=== PATIENT | male | born 1955 | race Caucasian/White ===

== ENCOUNTER 2017-02-19 18:04 | Emergency (ER) | payer OTHER ==
--- NOTE | 2017-02-19 20:23 | DIAGNOSTIC IMAGING REPORT ---
PROCEDURE: XR CHEST 2 VIEW INDICATION: SHORTNESS OF BREATH TECHNIQUE: PA and lateral view. COMPARISON: None. FINDINGS: Mild cardiomegaly with increased interstitial markings and small bilateral pleural effusions. No infiltrates. Mild degenerative changes of the spine. IMPRESSION: 1. Mild cardiomegaly and CHF.
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
--- NOTE | 2017-02-19 20:40 | ED CLINICAL REPORT ---
Clinical Report - Physicians/Mid Levels [facility] [address] [place] [address] 02/19/2017 18:04 Patient: ARLINE RASHEED Time Seen: 18:09. Arrived- By private vehicle. Historian- patient. HISTORY OF PRESENT ILLNESS Chief Complaint: PALPITATIONS. Modifying factors- (has orthopnea). This started today about 8 hours ago and is still present. Onset during exertion. No history of cocaine use prior to onset. It was gradual in onset and has been waxing/waning. It is described as a fast heart beat. No chest discomfort or sweating episodes. He has had difficulty breathing and dizziness. Similar symptoms previously: Recent medical care: The patient was seen recently in a clinic. ( Saw Dr Ng 4 days ago and began prednisone and oxycontin (#60) and oxycodone/ apap 7.5/325mg (#120) given). Seen for similar symptoms. Diagnosis: (bronchitis per patient). REVIEW OF SYSTEMS No fever, chills, headache, sore throat or nausea. No abdominal pain, black stools, difficulty with urination, skin rash or vomiting. No diarrhea or bloody stools. He has had insomnia (states hard to lay flat). All systems otherwise negative, except as recorded above. PAST HISTORY See nurses notes. PROBLEMS: Atrial Fibrillation. Diverticulitis. Hypertension. Dehydration. Coronary Artery Disease. Cardiovascular disease. Possible MA. UTI Surgeries: Carpal Tunnel Surgery. Hemorrhoidectomy. Hernia Repair. Wrist surgery. Medications: Aspirin Oral (Tablet 81 mg) 1 tablet, daily. Metoprolol Tartrate Oral (Tablet 50 mg) 1 tablet, two times daily. Nitroglycerin SL. OxyCODONE HCl Oral 10 mg. Percocet Oral (Tablet 7.5-325 mg) 1 tablet, 4x a day. Allergies: Latex. LIsinopril. Definite Moderate (cough). SOCIAL HISTORY Smoker- current status unknown. Occasional alcohol use. No drug use. ADDITIONAL NOTES The nursing notes have been reviewed. PHYSICAL EXAM Vital Signs: 02/19/2017 18:11 BP: 147/79. HR: 148. RR: 22. O2 saturation: 95%. Temp: 99.5 F. Pain level now: 5/10. Appearance: Alert. Oriented X3. Patient in mild distress. Eyes: Eyes normal inspection. No scleral icterus or pale conjunctivae. ENT: Pharynx normal. No pharyngeal erythema or tonsillar exudate. The mucous membranes are not dry. Neck: Normal inspection. Neck supple. CVS: Abnormal rhythm, which is irregularly irregular. No cardiac murmur. Respiratory: No respiratory distress. Chest nontender. Abdomen: Soft and nontender. Back: Normal external inspection. No CVA tenderness. Skin: Skin warm and dry. Normal skin color. Normal skin turgor. Extremities: Bilateral mild edema of the lower extremities. Extremities exhibit normal ROM. No calf tenderness. Neuro: Oriented X 3. No motor deficit. LABS, X-RAYS, AND EKG EKG: EKG time: (18:26). Atrial fibrillation (ventricular rate 140). Non-specific ST segment / T wave abnormalities. The study has been interpreted contemporaneously by me. The EKG appears to be a good tracing. Rhythm Strip #1: Atrial fibrillation (ventricular rate 140). No ectopy. Non-specific ST segment / T-wave abnormalities. Chest X-ray: Mild congestive heart failure present. (increased interstitial markings). Views: PA and lateral. Technique: good. The X-rays were interpreted contemporaneously by me. Laboratory Tests: UA-Culture if indicated: (CÉSAR: 02/19/2017 18:55) ( MsgRcvd 02/19/2017 19:12) Final results Test Result Flag Units (Reference) URINE COLOR YELLOW URINE APPEARANCE CLEAR URINE GLUCOSE NEGATIVE (NEGATIVE) URINE BILIRUBIN NEGATIVE (NEGATIVE) URINE KETONE NEGATIVE (NEGATIVE) URINE SPECIFIC GRAVITY 1.010 (1.010-1.030) URINE PH 6.0 (5.0-8.0) URINE PROTEIN NEGATIVE (NEGATIVE) URINE UROBILINOGEN 0.2 EU/dL (0.2-1.0) URINE NITRITE NEGATIVE (NEGATIVE) URINE BLOOD 2+ (NEGATIVE) URINE LEUK ESTERASE NEGATIVE (NEGATIVE) URINE RBC 0-1 rbc/hpf (0-1) URINE WBC RARE wbc/hpf (0-1) URINE EPITHELIAL CELLS RARE EPI/hpf (0-5) URINE BACTERIA NONE SEEN (NONE SEEN) URINE COMMENT CULT NOT INDICATED URINE CULTURES ARE SET-UP BASED ON THE FOLLOWING CRITERIA:POSITIVE NITRITEPOSITIVE LEUKOCYTE ESTERASEGREATER THAN 10 WHITE BLOOD CELLSMODERATE (2+) OR GREATER BACTERIA CBC w Diff: (CÉSAR: 02/19/2017 18:14) ( MsgRcvd 02/19/2017 18:48) Final results Test Result Flag Units (Reference) WHITE BLOOD COUNT 7.7 K/uL (4.5-11.5) RED BLOOD COUNT 4.66 M/uL (4.50-5.90) HEMOGLOBIN 13.6 gm/dL (13.5-17.5) HEMATOCRIT 40.6 L % (41.0-53.0) MEAN CELL VOLUME 87 fL (80-100) MEAN CORPUSCULAR HGB 29 pg (26-34) MEAN CORPUSCULAR HGB CONC 33 g/dL (31-37) RED CELL DISTRIBUTION WIDTH 18.5 H % (11.6-14.8) PLATELET COUNT 264 K/uL (150-400) NEUTROPHIL % 86.9 H % (50-75) LYMPH % 9.5 L % (25-40) MONO % 3.6 % (3-14) EOSINOPHIL % 0 % (0-4) BASOPHIL % 0 % (0-2) PT with INR: (CÉSAR: 02/19/2017 18:14) ( MsgRcvd 02/19/2017 18:59) Final results Test Result Flag Units (Reference) INR 0.9 (0.8-1.2) Low Intensity Therapy: INR 1.5-2.0 PT range 18.5-23.1Mod.Intensity Therapy: INR 2.0-3.0 PT range 23.1-31.5High Intensity Therapy: INR 2.5-3.5 PT range 27.4-35.5High Intensity Therapy 2: INR 3.0-4.0 PT range 31.5-39.3 D-DIMER QUANTITATIVE 0.55 H ug/mLFEU (0.27-0.52) The primary value of this quantitative assay relates toits negative predictive value (i.e. exclusion) of pulmonaryembolism/deep vein thrombosis/DIC.Elevated levels of d-dimer may also occur with:, age, cancer, inflammation, liver disease,post-op, infection, hematoma, coronary disease, peripheralarteriopathy, bleeding disorders and thrombolytic treatment.Results should be correlated with other clinical andradiological data.Testing Methodology: Latex Immunoassay Urine Drug Screen: (CÉSAR: 02/19/2017 18:55) ( [facility] 02/19/2017 19:26) Final results Test Result Flag Units (Reference) AMPHETAMINE/METHAMPHETAMINE NEGATIVE (NEGATIVE) BARBITURATE NEGATIVE (NEGATIVE) BENZODIAZEPINE NEGATIVE (NEGATIVE) CANNABINOID NEGATIVE (NEGATIVE) COCAINE NEGATIVE (NEGATIVE) ECSTASY NEGATIVE (NEGATIVE) METHADONE NEGATIVE (NEGATIVE) OPIATE NEGATIVE (NEGATIVE) The urine drug screen is a qualitative screening test fordrug overdose and abuse. All screen results should beconsidered as presumptive.Drugs screened for are as follows:BenzodiazepinesCocaineAmphetamines/MetamphetaminesTHC (Tetrahydrocannabinol)OpiatesBarbituratesEcstasyMethadonePositive results are unconfirmed. For confirmation, notifythe lab for the specimen to be sent to the reference lab.All confirmations must be performed by a differentmethodology.The ingestion of natural herbal and plant productscontaining Ephedra/Ephedra metabolites can produce in urineone or more substances capable of cross reacting withamphetamine/methamphetamine immunoassays. These testsprovide a preliminary result only. A more specificalternative chemical method must be used to obtain aconfirmed analytical result. BNP: (CÉSAR: 02/19/2017 18:14) ( [facility] 02/19/2017 19:09) Final results Test Result Flag Units (Reference) B-TYPE NATRIURETIC PEPTIDE 205 H pg/ml (5-100) CHEM 13 PANEL: (CÉSAR: 02/19/2017 18:14) ( [facility] 02/19/2017 19:08) Final results Test Result Flag Units (Reference) GLUCOSE 189 H mg/dL (70-110) BUN 17 mg/dL (7-18) CREATININE 1.4 H mg/dL (0.6-1.3) Estimated GFR 54.58 mL/min Estimated GFR- >60 mL/min Note: Persistent reduction over 3 months in eGFR<60 mL/min/1.73 m2 defines CKD. Patients with eGFR values>=60 mL/min/1.73 m2 may also have CKD if evidence ofpersistent proteinuria. Additional information may be foundat www.kidney.org. SODIUM 137 mmol/L (136-145) POTASSIUM 4.7 mmol/L (3.5-5.1) CHLORIDE 102 mmol/L (98-107) CARBON DIOXIDE 26 mmol/L (21-32) CALCIUM 9.1 mg/dL (8.5-10.1) TOTAL PROTEIN 7.3 g/dL (6.4-8.2) ALBUMIN 3.8 g/dL (3.3-5.0) BILIRUBIN, TOTAL 0.7 mg/dL (0.0-1.0) ALKALINE PHOSPHATASE 90 U/L (46-116) AST (SGOT) 33 U/L (15-37) ALT (SGPT) 58 U/L (12-78) CPK 143 U/L (24-260) MAGNESIUM 2.0 mg/dL (1.8-2.4) AMYLASE 40 U/L (25-115) TROPONIN I <0.05 ng/mL (0.00-1.5) TROPONIN REFERENCE RANGE:<0.1 NEGATIVE0.1-1.5 INDETERMINANT>1.5 POSITIVE ETHYL ALCOHOL < 3.0 L mg/dL (3-10) THYROID STIMULATING HORMONE 1.927 uIU/mL (0.30-3.74) . Pulse Oximetry: 02/19/2017 18:11 O2 saturation: 95%. (FIO2 - room air). Interpretation: normal. Note - Tests: (EXAM(S): NM CARDIAC STRESS TEST DATE OF EXAM(S): 09/23/2015 REFERRING PHYSICIAN/PROVIDER: Mohinder Ng MD ATTENDING PHYSICIAN/PROVIDER: Rafi Barclay MD CONSULTING YARD SWITCH OPERATOR: Sariah Crabtree MD PROCEDURE PERFORMED: Nuclear stress test INDICATIONS: Chest discomfort. RADIOPHARMACEUTICAL: The patient received 32.1 mCi of technetium-99m labeled sestamibi during rest and 30.0 mCi of technetium-99m labeled sestamibi during pharmacological stress. This is a two-day stress protocol. CARDIAC STRESS: The patient is stressed according to Lexiscan-Cardiolite protocol. Resting heart rate is 122 bpm and heart rate at test end is 118 bpm. The patients baseline blood pressure is 159/111 mmHg. At test end the blood pressure is 155/115 mmHg. The patient developed rare isolated PVCs and baseline EKG showed atrial fibrillation with a heart rate of 110-130 bpm. The patient did develop some mild chest discomfort which is relieved spontaneously after a few minutes. Findings of new onset atrial fibrillation were discussed with Dr. Mohinder Ng, although there is no evidence of significant ST-T changes consistent with ischemia. RAW DATA: There is appropriate radiotracer uptake at the LV myocardium. Motion correction software is applied. QUANTITATIVE GATED SPECT: I am not able to appreciate any overt findings for LV wall-motion abnormalities, although image quality is somewhat suboptimal which decreases the sensitivity for such. The ejection fraction during stress is 41% and during rest is 53%. The left ventricular end-diastolic volume during rest is 62 mL. The calculated TID is 0.89 which is within normal limits. MYOCARDIAL PERFUSION STUDY: There is no evidence of significant perfusion defects noted on the supine stress images, although there might be some diaphragmatic attenuation artifact which resolves with prone imaging. The rest supine images actually show slight worsening inferior perfusion defect; otherwise, the rest of the LV myocardium is within normal limits. IMPRESSION: 1. Most likely normal myocardium perfusion study. 2. 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 Ejection fraction is reduced with resting ejection fraction of 53% and stress ejection fraction of 41%. 3. Inferior perfusion defect is most likely an attenuation artifact secondary to diaphragmatic attenuation since it improves with prone imaging. 4. Clinical correlation is recommended. Electronically signed by: SARIAH CRABTREE MD 10/06/2015 17:01). PROGRESS AND PROCEDURES Course of Care: Diltiazem 15 mg + 10 mg IVP given. 20:39 02/19/17. Symptoms better. 20:39 02/19/17. HR 100 - 110. Pt is refusing admission despite my strong recommendation. He signs AMA. He is encouraged to return for new / worsening symptoms or any concerns 20:50 02/19/17. After full discussion of risks of stroke and benefits of anticoagulation, pt is refusing coumadin or other anticoagulant. Patient/family counseled. Old ED records reviewed. (PDMP: oxycontin (#60) and oxycodone/ apap 7.5/325mg (#120) given on 02/15/2017 - Dr Ng; JUAN with 3 visits to area ED's ([facility] x 2, [facility] x 1) in past 12 months). Disposition: Discharged. Condition: stable and improved. CLINICAL IMPRESSION Microscopic hematuria , paroxysmal atrial fibrillation with uncontrolled rate. Acute mild systolic, left ventricular congestive heart failure Mild hyperglycemia. INSTRUCTIONS No strenuous activity. Rest. Drink plenty of fluids. No alcohol until released. Warnings: Further evaluation is necessary. It is very important to follow up with a physician. GENERAL WARNINGS: Return or contact your physician immediately if your condition worsens or changes unexpectedly, if not improving as expected, or if other problems arise. Your Current Medications: CONTINUE TAKING THE FOLLOWING MEDICATIONS: Aspirin Oral : Tablet 81 mg, 1 tablet daily. Metoprolol Tartrate Oral : Tablet 50 mg, 1 tablet two times daily. Nitroglycerin SL*. OxyCODONE HCl Oral : 10 mg. Percocet Oral : Tablet 7.5-325 mg, 1 tablet 4x a day. Follow-up: Follow up with your doctor tomorrow. Understanding of the discharge instructions verbalized by family. AMA warnings: Oriented to person, place, and time. Gives appropriate answers and rational explanation of refusal of care. Speaks coherently. No signs of psychosis, auditory hallucinations, delusional thinking, suicidal ideations or slurred speech. No tangential thinking, visual hallucinations or homicidal ideations. Abstract thinking intact. Clinical Impression: the patient has the capacity to make decisions regarding the medical care offered. Relevant issues reviewed and discussed with the patient. Aware of suspected diagnosis suggested by screening exam. The recommended medical care being refused is hospital admission. The risks of refusing recommended care that were disclosed are and permanent mental impairment. Discharge instructions were provided. REFUSAL OF CARE STATEMENT (patient to review and sign in discharge instructions): I have read this paragraph. I understand that a doctor at this hospital wants to give me certain medical care. The doctor explained that care to me, and I understand what that care is. The doctor also explained to me what could happen to me if I leave here without having that care, and I understand what he said. I know that I am welcome to return to this hospital at any time to receive the recommended care or any other care that I may need at any time, regardless of my ability to pay for such care. Follow-up with: Mohinder Ng MD, Family Practice, , [facility], [address] [facility], [place], [address] Follow up tomorrow. Reason for referral: Dr. Ng has a walk-in clinic at his office which is open 7 days per week for your convenience (Electronically signed by Ham Riggins DO 02/19/2017 23:06)
--- NOTE | 2017-02-19 20:40 | ED ORDER SUMMARY ---
..... Patient: ARLINE RASHEED OrderSheet [facility] VisitID: [id number] [place] [address] 61y, M Registration Date/Time: 02/19/2017 ORDER SHEET Weight: 148.3 kg (stated) Allergies: Latex, LIsinopril GENERAL ORDERS: Armoured Car Escort (Continuous) (18:02/19/2017 [facility]) (Ack 18:12 TBergley) (18:34 JRomanelli R.N.) UA-Culture if indicated Urgent (18:02/19/2017 [facility] DO) (Ack 18:12 TBergley) (19:42 JRomanelli R.N.) Cardiac Panel Stat (:02/19/2017 [facility]) (Ack 18:12 TBergley) (18:34 JRomanelli R.N.) BNP Urgent ([facility] ) (Ack 18:12 TBergley) (18:34 JRomanelli R.N.) D-Dimer Urgent (18:02/19/2017 [facility] DO) (Ack 18:12 TBergley) (18:34 JRomanelli R.N.) Amylase Urgent (18:02/19/2017 [facility] DO) (Ack 18:12 TBergley) (18:34 JRomanelli R.N.) PT with INR Urgent (18:02/19/2017 [facility] DO) (Ack 18:12 TBergley) (18:34 JRomanelli R.N.) TSH Urgent (18:02/19/2017 [facility] DO) (Ack 18:12 TBergley) (18:34 JRomanelli R.N.) Ethyl Alcohol Urgent (18:02/19/2017 [facility] DO) (Ack 18:12 TBergley) (18:34 JRomanelli R.N.) Pulse oximeter (18:02/19/2017 [facility]) (Ack 18:12 TBergley) (18:34 JRomanelli R.N.) EKG - ER Stat (18:09 02/19/2017 [facility]) (Ack 18:12 TBergley) (18:34 Beatriceelli R.N.) Vitals (18:09 02/19/2017 [facility]) (Ack 18:12 TBergley) (18:34 Beatriceelli R.N.) Chest 2V Urgent (18:19 02/19/2017 [facility]) (Ack 18:27 TBergley) (18:45 TBergley) Urine Drug Screen Urgent (18:56 02/19/2017 [facility]) (Ack 18:57 TBergley) MEDICATION ORDERS: IV FLUIDS: IV NS : initial bolus 500 mL (1000 mL/hr), then 250 mL/hr for X2 (NOW) (18:09 02/19/2017 [facility]) (18:36 Beatriceelli R.N.) Diltiazem IV 15 mg (HIGH ALERT MEDICATION, NOW) (18:31 02/19/2017 [facility]) (18:50 Gagandeep R.N.) Diltiazem IV 10 mg (NOW) (19:25 02/19/2017 [facility]) (19:39 Gagandeep R.N.) ORDER SHEET NOTES: [Electronically signed by Ham Riggins DO (23:06 02/19/2017)] [Electronically signed by Jaison Chavira R.N. (:02/20/2017)] [Electronically locked/signed by Jaison Chavira R.N. (:02/20/2017)]
--- NOTE | 2017-02-19 20:40 | ED ORDER SUMMARY ---
..... Patient: ARLINE RASHEED OrderSheet [facility] VisitID: [id number] [place] [address] 61y, M Registration Date/Time: 02/19/2017 ORDER SHEET Weight: 148.3 kg (stated) Allergies: Latex, LIsinopril GENERAL ORDERS: Injection Molding Supervisor (Continuous) (18:02/19/2017 [facility]) (Ack 18:12 TBergley) (18:34 JRomanelli R.N.) UA-Culture if indicated Urgent (18:02/19/2017 [facility] DO) (Ack 18:12 TBergley) (19:42 JRomanelli R.N.) Cardiac Panel Stat (:02/19/2017 [facility]) (Ack 18:12 TBergley) (18:34 JRomanelli R.N.) BNP Urgent (18:02/19/2017 [facility] ) (Ack 18:12 TBergley) (18:34 JRomanelli R.N.) D-Dimer Urgent (18:02/19/2017 [facility] DO) (Ack 18:12 TBergley) (18:34 JRomanelli R.N.) Amylase Urgent (18:02/19/2017 [facility] DO) (Ack 18:12 TBergley) (18:34 JRomanelli R.N.) PT with INR Urgent (18:02/19/2017 [facility] DO) (Ack 18:12 TBergley) (18:34 JRomanelli R.N.) TSH Urgent (18:02/19/2017 [facility] DO) (Ack 18:12 TBergley) (18:34 JRomanelli R.N.) Ethyl Alcohol Urgent (18:02/19/2017 [facility] DO) (Ack 18:12 TBergley) (18:34 JRomanelli R.N.) Pulse oximeter (18:02/19/2017 [facility]) (Ack 18:12 TBergley) (18:34 JRomanelli R.N.) EKG - ER Stat (18:09 02/19/2017 [facility]) (Ack 18:12 TBergley) (18:34 Beatriceelli R.N.) Vitals (18:09 02/19/2017 [facility]) (Ack 18:12 TBergley) (18:34 Beatriceelli R.N.) Chest 2V Urgent (18:19 02/19/2017 [facility]) (Ack 18:27 TBergley) (18:45 TBergley) Urine Drug Screen Urgent (18:56 02/19/2017 [facility]) (Ack 18:57 TBergley) MEDICATION ORDERS: IV FLUIDS: IV NS : initial bolus 500 mL (1000 mL/hr), then 250 mL/hr for X2 (NOW) (18:09 02/19/2017 [facility]) (18:36 Beatriceelli R.N.) Diltiazem IV 15 mg (HIGH ALERT MEDICATION, NOW) (18:31 02/19/2017 [facility]) (18:50 Gagandeep R.N.) Diltiazem IV 10 mg (NOW) (19:25 02/19/2017 [facility]) (19:39 Gagandeep R.N.) ORDER SHEET NOTES: [Electronically signed by Ham Riggins DO (23:06 02/19/2017)] [Electronically signed by Jaison Chavira R.N. (:02/20/2017)] [Electronically locked/signed by Jaison Chavira R.N. (:02/20/2017)]
--- NOTE | 2017-02-20 01:30 | ED MAR SUMMARY ---
..... Medication Administration Record [facility] [address] [place] [address] Patient: ARLINE RASHEED Visit ID: [id number] 61y, M Weight: 148.3 kg Height/Length: 74 in BMI: 42 ALLERGIES: Latex, LIsinopril Start 18:26 02/19/2017 Jaison Chavira RAmaliaN., Stop 20:30 02/19/2017 Jaison Chavira R.N. Medication Administered: IV NS (SALINE), Dose: IV Fluids over 2 hour(s), Rate: 250 mL/hr, Bolus: 500 mL over 30 minute(s), Dispensed: 1000 mL bag, Site: #1 left wrist. Medication Ordered: IV NS : initial bolus 500 mL (1000 mL/hr), then 250 mL/hr for X2 (NOW). Given 18:45 02/19/2017 Jaison Chavira R.N. Medication Administered: DILTIAZEM [IVP], Dose: 15 mg IVP over 2 minute(s), Site: #1 left wrist. Medication Ordered: Diltiazem IV 15 mg (HIGH ALERT MEDICATION, NOW). Given 19:34 02/19/2017 Jaison Chavira RAmaliaN. Medication Administered: DILTIAZEM [IVP], Dose: 10 mg IVP over 2 minute(s), Site: #1 left wrist. Medication Ordered: Diltiazem IV 10 mg (NOW).
--- NOTE | 2017-02-20 01:30 | ED MED RECONCILIATION SUMMARY ---
Patient: ARLINE RASHEED Medication Reconciliation Report [facility] VisitID: [id number] [address] [place] [address] 61y, M Registration Date/Time: 02/19/2017 Weight: 148.3 kg Height/Length: 74 in. BMI: 42.0 ALLERGIES: Latex, LIsinopril The patient's Home Medications are listed below: CONTINUE TAKING THE FOLLOWING MEDICATIONS: Aspirin Oral (81 mg) 1 tablet, daily Metoprolol Tartrate Oral (50 mg) 1 tablet, two times daily Nitroglycerin SL OxyCODONE HCl Oral 10 mg Percocet Oral (7.5-325 mg) 1 tablet, 4x a day The source(s) of the original Home Medication information: patient The following Medications were given to the patient in the Emergency Department: IV NS IV Fluids bolus 500 mL over 30 minute(s), then 250 mL/hr, administered: 02/19/2017 6:26:00 PM Diltiazem [IVP] IVP 15 mg, administered: 02/19/2017 6:45:00 PM Diltiazem [IVP] IVP 10 mg, administered: 02/19/2017 7:34:00 PM The following Medications were prescribed to the patient: None.
--- NOTE | 2017-02-20 01:30 | ED MED RECONCILIATION SUMMARY ---
Patient: ARLINE RASHEED Medication Reconciliation Report [facility] VisitID: [id number] [address] [place] [address] 61y, M Registration Date/Time: 02/19/2017 Weight: 148.3 kg Height/Length: 74 in. BMI: 42.0 ALLERGIES: Latex, LIsinopril The patient's Home Medications are listed below: CONTINUE TAKING THE FOLLOWING MEDICATIONS: Aspirin Oral (81 mg) 1 tablet, daily Metoprolol Tartrate Oral (50 mg) 1 tablet, two times daily Nitroglycerin SL OxyCODONE HCl Oral 10 mg Percocet Oral (7.5-325 mg) 1 tablet, 4x a day The source(s) of the original Home Medication information: patient The following Medications were given to the patient in the Emergency Department: IV NS IV Fluids bolus 500 mL over 30 minute(s), then 250 mL/hr, administered: 02/19/2017 6:26:00 PM Diltiazem [IVP] IVP 15 mg, administered: 02/19/2017 6:45:00 PM Diltiazem [IVP] IVP 10 mg, administered: 02/19/2017 7:34:00 PM The following Medications were prescribed to the patient: None.
--- NOTE | 2017-02-20 01:30 | ED DISCHARGE INSTRUCTIONS ---
Patient: ARLINE RASHEED General Instructions [facility] VisitID: [id number] [place] [address] 61y, M Registration Date/Time: 02/19/2017 Microscopic hematuria , paroxysmal atrial fibrillation with uncontrolled rate. Acute mild systolic, left ventricular congestive heart failure Mild hyperglycemia. INSTRUCTIONS No strenuous activity. Rest. Drink plenty of fluids. No alcohol until released. Warnings: Further evaluation is necessary. It is very important to follow up with a physician. GENERAL WARNINGS: Return or contact your physician immediately if your condition worsens or changes unexpectedly, if not improving as expected, or if other problems arise. Your Current Medications: CONTINUE TAKING THE FOLLOWING MEDICATIONS: Aspirin Oral : Tablet 81 mg, 1 tablet daily. Metoprolol Tartrate Oral : Tablet 50 mg, 1 tablet two times daily. Nitroglycerin SL*. OxyCODONE HCl Oral : 10 mg. Percocet Oral : Tablet 7.5-325 mg, 1 tablet 4x a day. Follow-up: Follow up with your doctor tomorrow. Understanding of the discharge instructions verbalized by family. AMA warnings: Oriented to person, place, and time. Gives appropriate answers and rational explanation of refusal of care. Speaks coherently. No signs of psychosis, auditory hallucinations, delusional thinking, suicidal ideations or slurred speech. No tangential thinking, visual hallucinations or homicidal ideations. Abstract thinking intact. Clinical Impression: the patient has the capacity to make decisions regarding the medical care offered. Relevant issues reviewed and discussed with the patient. Aware of suspected diagnosis suggested by screening exam. The recommended medical care being refused is hospital admission. The risks of refusing recommended care that were disclosed are and permanent mental impairment. Discharge instructions were provided. REFUSAL OF CARE STATEMENT (patient to review and sign in discharge instructions): I have read this paragraph. I understand that a doctor at this hospital wants to give me certain medical care. The doctor explained that care to me, and I understand what that care is. The doctor also explained to me what could happen to me if I leave here without having that care, and I understand what he said. I know that I am welcome to return to this hospital at any time to receive the recommended care or any other care that I may need at any time, regardless of my ability to pay for such care. Follow-up with: Mohinder Ng MD, [facility], , [facility], [address] [facility] [id number] Follow up tomorrow. Reason for referral: Dr. Ng has a walk-in clinic at his office which is open 7 days per week for your convenience ADDITIONAL INFORMATION Heart Failure (Left Or Right Sided) The heart is a large muscle that pumps blood throughout the body. Blood carries oxygen to all the organs, muscles, and skin of your body. After the body takes the oxygen out of the blood, the blood returns to the heart. The right side of the heart collects that blood and pumps it to the lungs to receive fresh oxygen. This oxygen-rich blood from the lungs then returns to the left side of the heart where it is pumped back out to the rest of the body, starting the process all over. Heart Failure (HF) occurs when the heart muscle is weakened. This affects the pumping action of the heart. When the right side of the heart is weakened, it cant handle the blood it is receiving from the rest of the body. This blood returns to the heart through veins. When too much pressure builds up in the veins fluid leaks out into the tissues. [place] then causes that fluid to spread to those parts of the body that are the lowest. Therefore, one of the first symptoms of HF include swelling in the feet and ankles. If the condition worsens, the swelling can even go up past the knees. When the left side of the heart is weakened, it cant handle the blood it is receiving from the lungs. Pressure then builds up in the veins of the lungs, causing fluid to leakinto the lung tissues. This may be referred to as congestive heart failure.This causes you to feel short of breath, weak, or dizzy. These symptoms are often worse with exertion, such as climbing stairs or walking up hills. Lying flat is uncomfortable and can make your breathing worse. This may make sleeping difficult and force you to useextra pillows to sleep well. This condition may not only affect the right side of the heart or only the left side. While it may have started on one side, it often affects both sides. Causes of heart failure Coronary artery disease Prior heart attack (also known as acute myocardial infarction, or AMI) High blood pressure Damaged heart valve Diabetes Obesity Cigarette smoking Alcohol abuse Treatment Heart failure is a chronic condition. There is no cure. The purpose of medical treatment is to improve the pumping action of the heart, and remove excess water from the body. A number of medications can help achieve this goal,improvesymptoms and prevent the heart from becoming weaker. Another major goal is to better treat the caues of heart failure, such as diabetes, high blood pressure, and your lifestyle. Home care Check your weight every day. A sudden increase in weight gain could mean worsening heart failure. Use the same scale every day Weigh yourself at the same time every day Make sure the scale is on the floor, not on a rug Keep a record of your weight every day, so your doctor can see it. If you are not given a log sheet for this, keep a separate journal for this purpose. Reduce your salt (sodium) intake. Avoid high-salt foods (olives, pickles, smoked meats, salted potato chips, etc.). Do not add salt to your food at the table and use only small amounts of salt when cooking. Follow your doctors recommendations about how much fluid intake is safe. Stop smoking. Reduce alcohol use. Lose weight if you are overweight. The excess weight adds a lot of stress on the workload of the heart. Stay active. Talk to your doctor about an exercise program that is safe for your heart. Keep your feet elevated to reduce swelling. Ask your doctor about support hose as a preventive treatment for daytime leg swelling. Besides taking your medicine as instructed, an important part of treatment includes lifestyle changes such as diet, physical activity, stopping smoking, and weight control. Improve your diet. Often in the hospital, people are given a "heart healthy diet." This includes more fresh foods, lower fat, less processed foots, and lower salt. Follow-up care Follow up with your doctor as directed by our staff. Make sure to keep any appointments that were made for you as this can help better control heart failure. If an X-ray was done, you will be notified of any new findings that may affect your care. Call 911 Call 911 if you: Become severely short of breath Feel lightheaded, or feel like you might pass out or faint Have chest pain or discomfort that is different than usual, the medicines your doctor told you to use for this do not help, or the pain lasts longer than 10 to 15 minutes Suddendly develop a rapid heart rate When to seek medical care Get prompt medical attention if you have any of the following signs of worsening heart failure: Sudden weight gain (3or more pounds in one day or5or more pounds in one week) Trouble breathing not related to being active New or increased swelling of your legs or ankles Swelling or pain in your abdomen Breathing trouble at night (waking up short of breath, needing more pillows to breathe) Frequent coughing that doesnt go away Feeling much more tired than usual Blood In The Urine Blood in the urine ("hematuria") has many possible causes. If it occurs after an injury (such as a car accident or fall), it is most often a sign of bruising to the kidney or bladder. Common medical causes of blood in the urine include urinary tract infection, kidney stone, inflammation, tumors, or certain other diseases of the kidney or bladder. Menstruation can cause blood to appear in the urine sample, although it is not coming from the urinary tract. If only a trace amount of blood is present, it will show up on the urine test, even though the urine may be yellow and not pink or red. This may occur with any of the above conditions, as well as heavy exercise or high fever. In this case, your doctor may want to repeat the urine test on another day. This will show if the blood is still present. If so, then other tests can be done to find out the cause. Home Care: If your urine does not appear bloody (pink, brown or red) then you do not need to restrict your activity in any way. If you can see blood in your urine, rest and avoid heavy exertion until your next exam. Do not use aspirin or anti-inflammatory medicine like ibuprofen (Motrin, Advil) or naproxen (Naprosyn, Aleve). These thin the blood and may increase bleeding. Follow Up with your doctor or as advised by our staff. If you were injured and had blood in your urine, you should have a repeat urine test in 1-2 days. Contact your doctor or return to this facility for this test. [NOTE: A radiologist will review any X-rays that were taken. We will notify you of any new findings that may affect your care.] Get Prompt Medical Attention if any of the following occur: Bright red blood or blood clots in the urine (if a new symptom) Weakness, dizziness or fainting New groin, abdominal or back pain Fever of 100.4F (38C) or higher, or as directed by your healthcare provider Repeated vomiting Bleeding from nose, gums or easy bruising You have been given the following additional information: Heart Failure, General Hematuria No strenuous activity. Rest. (Electronically signed by Ham Riggins DO 02/19/2017 23:06)
--- NOTE | 2017-02-20 01:30 | ED MAR SUMMARY ---
..... Medication Administration Record [facility] [address] [place] [address] Patient: ARLINE RASHEED Visit ID: [id number] 61y, M Weight: 148.3 kg Height/Length: 74 in BMI: 42 ALLERGIES: Latex, LIsinopril Start 18:26 02/19/2017 Jaison Chavira RAmaliaN., Stop 20:30 02/19/2017 Jaison Chavira R.N. Medication Administered: IV NS (SALINE), Dose: IV Fluids over 2 hour(s), Rate: 250 mL/hr, Bolus: 500 mL over 30 minute(s), Dispensed: 1000 mL bag, Site: #1 left wrist. Medication Ordered: IV NS : initial bolus 500 mL (1000 mL/hr), then 250 mL/hr for X2 (NOW). Given 18:45 02/19/2017 Jaison Chavira R.N. Medication Administered: DILTIAZEM [IVP], Dose: 15 mg IVP over 2 minute(s), Site: #1 left wrist. Medication Ordered: Diltiazem IV 15 mg (HIGH ALERT MEDICATION, NOW). Given 19:34 02/19/2017 Jaison Chavira RAmaliaN. Medication Administered: DILTIAZEM [IVP], Dose: 10 mg IVP over 2 minute(s), Site: #1 left wrist. Medication Ordered: Diltiazem IV 10 mg (NOW).
[2017-03-04] MEDS ORDERED: IPRATROPIUM BROMIDE/ IN (13:31)
== END 2017-02-19 21:00 | disposition home or self-care (01) ==
LOC: ED SRH 18:04
DX: I50.21 Acute systolic (congestive) heart failure (principal); R31.29 Other microscopic hematuria; R73.9 Hyperglycemia, unspecified; I10 Essential (primary) hypertension; I48.91 Unspecified atrial fibrillation; Z79.82 Long term (current) use of aspirin; Z79.891 Long term (current) use of opiate analgesic; Z88.8 Allergy status to other drugs, medicaments and biological substances; Z91.040 Latex allergy status
CPT/HCPCS: 90004; 90100; 90616; 91320; 91556; 92010; 92530; 92610; 92720; 92760; 92761; 92762; 92763; 92764; 92765; 92766; 92767; 93140; 94060; 95059

== ENCOUNTER 2017-02-28 16:22 | Observation (INO) | payer OTHER ==
[~2017-02-28] VITALS: Ht 188 cm; Wt 153.0 kg
--- NOTE | 2017-02-28 17:12 | DIAGNOSTIC IMAGING REPORT ---
PROCEDURE: XR CHEST 1 VIEW INDICATION: SHORTNESS OF BREATH TECHNIQUE: Portable AP view 04:51 p.m. COMPARISON: Chest 02/19/2017 FINDINGS: Mild cardiomegaly with increased interstitial markings No infiltrates. Mild degenerative changes of the spine. IMPRESSION: 1. Mild cardiomegaly and CHF.
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
--- NOTE | 2017-02-28 19:57 | ED ORDER SUMMARY ---
..... Patient: ARLINE RASHEED OrderSheet [facility] VisitID: [id number] [place] [address] 61y, M Registration Date/Time: 02/28/2017 ORDER SHEET Weight: 147.4 kg (stated) Allergies: Latex, LIsinopril GENERAL ORDERS: Chest 1V Urgent (16:41 02/28/2017 Robert ULLOA) (Ack 16:44 ANDRIAoerner) (16:48 KHoerner) Production Assembler (Continuous) (16:41 02/28/2017 Robert ULLOA) (16:42 MWinterer R.N.) CBC w Diff Urgent (16:41 02/28/2017 Robert ULLOA) (Ack 16:44 ANDRIAoerner) (16:45 KHoerner) CMP Urgent (16:41 02/28/2017 Robert ULLOA) (Ack 16:44 ANDRIAoerner) (16:45 KHoerner) UA-Culture if indicated Urgent (16:41 02/28/2017 Robert ULLOA) (Ack 16:44 ANDRIAoerner) PT with INR Urgent (16:41 02/28/2017 Robert ULLOA) (Ack 16:44 ANDRIAoerner) (16:44 KHoerner) PTT Urgent (16:41 02/28/2017 Robert ULLOA) (Ack 16:44 ANDRIAoerner) (16:44 KHoerner) D-Dimer Urgent (16:41 02/28/2017 Robert ULLOA) (Ack 16:44 ANDRIAoerner) (16:44 KHoerner) Amylase Urgent (16:41 02/28/2017 Robert ULLOA) (Ack 16:44 ANDRIAoerner) (16:44 KHoerner) Lipase Urgent (16:41 02/28/2017 Robert ULLOA) (Ack 16:44 ANDRIAoerner) (16:44 KHoerner) CPK Urgent (16:41 02/28/2017 Robert ULLOA) (Ack 16:44 ANDRIAoerner) (16:44 KHoerner) Troponin-I Urgent (16:41 02/28/2017 Robert ULLOA) (Ack 16:44 ANDRIAoersamir) (16:44 KHoerner) BNP Urgent (16:41 02/28/2017 Robert ULLOA) (Ack 16:44 ANDRIAoersamir) (16:44 KHoersamir) Oxygen (2 L/min) (NC) (16:41 02/28/2017 Robert ULLOA) (16:42 MWinterer R.N.) Pulse oximeter (16:41 02/28/2017 Robert ULLOA) (16:42 MWinterer R.N.) EKG - ER Stat (16:41 02/28/2017 Robert ULLOA) (16:42 MWinterer R.N.) MEDICATION ORDERS: Aspirin PO 325 mg (Do not crush or chew, NOW) (16:37 02/28/2017 MWinterer R.N. per protocol) (16:38 MWinterer R.N.) DuoNeb Neb Tx 1 unit dose (NOW) (18:28 02/28/2017 Robert ULLOA) (Ack 18:31 MWinterer R.N.) (19:16 TBowen R.N.) IV FLUIDS: IV Saline Lock (16:41 02/28/2017 Robert ULLOA) (16:43 MWinterer R.N.) Lasix IV 10 mg (NOW) (18:23 02/28/2017 Robert ULLOA) (Ack 18:24 MWinterer R.N.) (18:31 MWinterer R.N.) Solu-MEDROL IV 125 mg (NOW) (18:28 02/28/2017 Robert ULLOA) (Ack 18:31 MWinterer R.N.) (18:37 MWinterer R.N.) ORDER SHEET NOTES: [Electronically signed by Cecille Moreno R.N. (21:47 02/28/2017)] [Electronically signed by Cecille Moreno R.N. (21:48 02/28/2017)] [Electronically signed by Brayden Smith MD (22:42 03/01/2017)] [Electronically locked/signed by Cecille Moreno R.N. (21:47 02/28/2017)]
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
--- NOTE | 2017-02-28 19:57 | ED ORDER SUMMARY ---
..... Patient: ARLINE RASHEED OrderSheet [facility] VisitID: [id number] [place] [address] 61y, M Registration Date/Time: 02/28/2017 ORDER SHEET Weight: 147.4 kg (stated) Allergies: Latex, LIsinopril GENERAL ORDERS: Chest 1V Urgent (16:41 02/28/2017 Robert ULLOA) (Ack 16:44 ANDRIAoerner) (16:48 KHoerner) Bug Trimmer (Continuous) (16:41 02/28/2017 Robert ULLOA) (16:42 MWinterer R.N.) CBC w Diff Urgent (16:41 02/28/2017 Robert ULLOA) (Ack 16:44 ANDRIAoerner) (16:45 KHoerner) CMP Urgent (16:41 02/28/2017 Robert ULLOA) (Ack 16:44 ANDRIAoerner) (16:45 KHoerner) UA-Culture if indicated Urgent (16:41 02/28/2017 Robert ULLOA) (Ack 16:44 ANDRIAoerner) PT with INR Urgent (16:41 02/28/2017 Robert ULLOA) (Ack 16:44 ANDRIAoerner) (16:44 KHoerner) PTT Urgent (16:41 02/28/2017 Robert ULLOA) (Ack 16:44 ANDRIAoerner) (16:44 KHoerner) D-Dimer Urgent (16:41 02/28/2017 Robert ULLOA) (Ack 16:44 ANDRIAoerner) (16:44 KHoerner) Amylase Urgent (16:41 02/28/2017 Robert ULLOA) (Ack 16:44 ANDRIAoerner) (16:44 KHoerner) Lipase Urgent (16:41 02/28/2017 Robert ULLOA) (Ack 16:44 ANDRIAoerner) (16:44 KHoerner) CPK Urgent (16:41 02/28/2017 Robert ULLOA) (Ack 16:44 ANDRIAoerner) (16:44 KHoerner) Troponin-I Urgent (16:41 02/28/2017 Robret ULLOA) (Ack 16:44 ANDRIAoersamir) (16:44 KHoerner) BNP Urgent (16:41 02/28/2017 Robert ULLOA) (Ack 16:44 ANDRIAoersamir) (16:44 KHoersamir) Oxygen (2 L/min) (NC) (16:41 02/28/2017 Robert ULLOA) (16:42 MWinterer R.N.) Pulse oximeter (16:41 02/28/2017 Robert ULLOA) (16:42 MWinterer R.N.) EKG - ER Stat (16:41 02/28/2017 Robert ULLOA) (16:42 MWinterer R.N.) MEDICATION ORDERS: Aspirin PO 325 mg (Do not crush or chew, NOW) (16:37 02/28/2017 MWinterer R.N. per protocol) (16:38 MWinterer R.N.) DuoNeb Neb Tx 1 unit dose (NOW) (18:28 02/28/2017 Robert ULLOA) (Ack 18:31 MWinterer R.N.) (19:16 TBowen R.N.) IV FLUIDS: IV Saline Lock (16:41 02/28/2017 Robert ULOLA) (16:43 MWinterer R.N.) Lasix IV 10 mg (NOW) (18:23 02/28/2017 Robert ULLOA) (Ack 18:24 MWinterer R.N.) (18:31 MWinterer R.N.) Solu-MEDROL IV 125 mg (NOW) (18:28 02/28/2017 Robert ULLOA) (Ack 18:31 MWinterer R.N.) (18:37 MWinterer R.N.) ORDER SHEET NOTES: [Electronically signed by Cecille Moreno R.N. (21:47 02/28/2017)] [Electronically signed by Cecille Moreno R.N. (21:48 02/28/2017)] [Electronically signed by Brayden Smith MD (22:42 03/01/2017)] [Electronically locked/signed by Cecille Moreno R.N. (21:47 02/28/2017)]
--- NOTE | 2017-02-28 21:11 | History & Physical Report ---
Information Source Information Source: Self Reliability: Fair History Chief Complaint shortness of breath and chest pain History of Present Illness Patient is a 61-year-old gentleman with past medical history of hypertension. Patient is presenting with a one-week history of 2 pillow orthopnea and chest discomfort. Patient states that approximately 2 months ago he was suffering from a flulike illness which lasted approximately 1 month. He claims after this illness he developed worsening exercise tolerance and 2 pillow orthopnea. He claims that he was able to walk much longer than he is currently and he was able to walk outside without becoming short of breath for short distances however currently patient is finding that he is more short of breath easier than before. Additionally on top of this patient has been noticing a scanty cough and increased shortness of breath was with exertion. Lastly patient has been noticing that during these shortness of breath periods the patient develops wheezing which eventually subsides spontaneously. Patient has no other complaints at the moment and is doing relatively well. Patient History 1. Atrial fibrillation 2. Wheezing 3. Orthopnea Social History Pt is a current 1 pack a day smoker for the past 46 years. Patient drinks socially patient does not use any illicit substances. Currently patient lives alone and manages his own ADLs independently. Patient has no regular doctor that he sees and he is noncompliant with medication. Family History Family history was reviewed; no changes noted. Medications and Allergies Medications Home Meds Aspirin 81 mg Metoprolol tartrate 50 mg bid Oxycodone 5/325 Current Medications Sig/Jonathan Start time Last Medication Dose Route Stop Time Status Admin Aspirin 81 MG DAILY 03/01 0900 AC PO Albuterol/Ipratropium 3 ML RTQ6H PRN 02/28 2100 AC 03/01 IN 0231 Diltiazem HCl 30 MG BID 02/28 2100 AC 02/28 PO 2228 Metoprolol Tartrate 50 MG BID 02/28 2100 AC 02/28 PO 2228 Oxycodone/ See Dose Q4H PRN 02/28 2100 AC Acetaminophen Insts (1) PO Dose Instructions: (1)Oxycodone/Acetaminophen: 1 - 2 TABLETS Allergies Coded Allergies: Latex (BLISTERING 02/28/17) Lisinopril (SEVERE COUGH 02/28/17) Review of Systems Constitutional Weakness. Denies: Fever, Chills, Sweats, Malaise, Other. Eyes Denies: Pain, Vision Change, Conjunctival Inflammation, Eyelid Inflammation, Redness, Other. ENT Denies: Ear Pain, Ear Discharge, Nose Pain, Nasal Discharge, Nasal Congestion, Mouth Pain, Mouth Swelling, Throat Pain, Throat Swelling, Other. Respiratory SOB w/exertion, Wheezing, Other. Denies: Cough, Dry, Hemoptysis, Pleuritic Pain , Sputum. Cardiovascular Palpitations, Orthopnea. Denies: Chest Pain, PND, Edema, Light-headedness, Other. Gastrointestinal Denies: Nausea, Vomiting, Abdominal Pain, Diarrhea, Constipation, Melena, Hematochezia, Other. Genitourinary Denies: Dysuria, Frequency, Incontinence, Hematuria, Retention, Other. Musculoskeletal Denies: Neck Pain, Shoulder Pain, Arm Pain, Back Pain, Hand Pain, Leg Pain, Foot Pain, Other. Skin Denies: Rash, Lesions, Jaundice, Bruising, Other. Neurological Denies: Weakness, Numbness, Incoordination, Change in speech, Confusion, Seizures, Other. Physical Exam Vital Signs / I&Os Vital Signs Date Time Temp Pulse Resp B/P Pulse O2 O2 Flow FiO2 Ox Delivery Rate 03/01 0237 98.1 95 20 134/77 98 Room Air 03/01 0046 Room Air 02/28 2155 97.7 109 20 137/85 97 02/28 1917 1.5 I&O 02/28 0800 02/28 1600 03/01 0000 Intake Total 500 Output Total 0 Balance 500 General Appearance Alert, Oriented X3, No acute distress HEENT Atraumatic, PERRLA, Moist mucous membranes Lungs Clear to auscultation Neck Supple, No JVD, No masses Cardiovascular Normal S1 and S2, - irregularly irregular rhythm Abdomen Soft, No tenderness, No guarding Pelvic No masses Extremities No clubbing, No edema, Normal pulses Neurological Normal speech, Normal tone, Cranial nerves intact, Strength 5/5 x4 ext's Psych/Mental Status Mood normal LAB Results Laboratory Tests 02/28 02/28 02/28 1635 1635 1999 Chemistry Plasma Sodium (136 - 145 mmol/L) 141 Plasma Potassium (3.5 - 5.1 mmol/L) 4.2 Plasma Chloride (98 - 107 mmol/L) 104 CO2 (Enzymatic) (21 - 32 mmol/L) 29 BUN (7 - 18 mg/dL) 17 Creatinine (0.6 - 1.3 mg/dL) 1.2 Est GFR ( Amer) (mL/min) >60 Est GFR (Non-Af Amer) (mL/min) >60 Glucose (70 - 110 mg/dL) 202 Plasma Calcium (8.5 - 10.1 mg/dL) 8.7 Total Bilirubin (0.0 - 1.0 mg/dL) 0.5 AST (15 - 37 U/L) 22 ALT (12 - 78 U/L) 41 Alkaline Phosphatase (46 - 116 U/L) 94 Creatine Kinase (24 - 260 U/L) 108 Troponin (0.00 - 1.5 ng/mL) <0.05 B-Natriuretic Peptide (5 - 100 pg/ml) 194 Total Protein (6.4 - 8.2 g/dL) 7.3 Albumin (3.3 - 5.0 g/dL) 3.6 Amylase (25 - 115 U/L) 57 Lipase (73 - 393 U/L) 240 Coagulation INR (0.8 - 1.2) 1.0 APTT (24 - 34 SECONDS) 30 D-Dimer, Quantitative (0.27 - 0.52 ug/mLFEU) 0.40 Hematology WBC (4.5 - 11.5 K/uL) 7.0 RBC (4.50 - 5.90 M/uL) 4.49 Hgb (13.5 - 17.5 gm/dL) 13.2 Hct (41.0 - 53.0 %) 40.0 MCV (80 - 100 fL) 89 MCH (26 - 34 pg) 29 RDW (11.6 - 14.8 %) 17.7 Neut % (Auto) (50 - 75 %) 75.7 Lymph % (Auto) (25 - 40 %) 16.1 [place] % (Auto) (3 - 14 %) 7.4 Eos % (Auto) (0 - 4 %) 0.6 Baso % (Auto) (0 - 2 %) 0.2 Plt Count, EDTA (150 - 400 K/uL) 273 PUBS MCHC (31 - 37 g/dL) 33 Urines Urine Color YELLOW Urine Appearance CLEAR Urine pH (5.0 - 8.0) 5.5 Ur Specific [place] (1.010 - 1.030) 1.020 Urine Protein (NEGATIVE) NEGATIVE Urine Ketones (NEGATIVE) NEGATIVE Urine Blood (NEGATIVE) 1+ Urine Nitrite (NEGATIVE) NEGATIVE Urine Bilirubin (NEGATIVE) NEGATIVE Urine Urobilinogen (0.2 - 1.0 EU/dL) 0.2 Ur Leukocyte Esterase (NEGATIVE) NEGATIVE Urine RBC (0 - 1 rbc/hpf) 0-1 Urine WBC (0 - 1 wbc/hpf) RARE Ur Epithelial Cells (0 - 5 EPI/hpf) 0-1 Urine Bacteria (NONE SEEN) NONE SEEN Urine Glucose (NEGATIVE) NEGATIVE Urine Comment CULT NOT INDICATED Assessment and Plan Problem List 1. Atrial fibrillation Plan - pt has a known history of atrial fibrillation - pt claims that it was controlled in the past however upon arrival patient was seen to be in the 130s - will reinstate patients home dose of metoprolol 50 mg bid - will add diltiazem 30 mg bid - currently with the two medications patient is exhibiting adequate control 2. Wheezing Plan - Pt has an extensive smoking history - pt remains incredulous that he might have copd - will place patient on duonebs q6 prn - pt will require an out patient pft - will re-examine need for further breathing treatments 3. Orthopnea Plan - pt has a new finding of 2 pillow orthopnea - pt has not had any other signs of compromised respiratory function except for reduced exercise tolerance - will order echocardiogram 4. Hypertension Plan - pts blood pressure has been well controlled - will continue with metoprolol and diltiazem at doses mentioned above 5. Diabetes Plan - pt has two instances with blood sugars over 200 - pt has been told in the past that he "has high sugars" - has never taken any medication in the past - will place on sliding scale and obtain hba1c - will approach patient about starting diabetic regimen
[2017-02-28 21:55] VITALS: BP 137/85
--- NOTE | 2017-02-28 22:10 | NUR ---
PT ARRIVED FROM ED [facility] AT 2155. A&O X3, ABLE TO COMMUNICATE NEEDS, PLEASANT AND COOPERATIVE DURING CARE. FAINT EXP WHEEZES NOTED IN BILAT UPPER LOPEZ AND L BASE, ON RA, NO SX OF RESPIRATORY DIFFICULTY, SATS 97%; ON 1L O2 VIA NC WHEN IN ED. ABD SOFT, NON-TENDER, BT PRESENT ALL QUADS. 2+ BLE EDEMA, PEDAL PULSES PRESENT. DENIES PAIN AND NAUSEA, C/O CHRONIC NUMBNESS IN R GREAT TOE AND FIRST AND SECOND TOES. ARRIVED WITH OWN FWW, SBA WITH TRANSFER FROM [facility] TO BED, A LITTLE UNSTEADY WITH PIVOT. NO SKIN ISSUES NOTED.
[2017-02-28] MEDS ORDERED: ASPIRIN ADULT L81 M1 PO (22:50)
[2017-02-28] MEDS ORDERED: NITROSTAT0.4 MG SL (22:51)
[2017-02-28] MEDS ORDERED: METOPROLOL TART50 MG PO (22:51)
[2017-02-28] MEDS ORDERED: ROXICODONE5 MG PO (22:52)
[2017-02-28] MEDS ORDERED: PERCOCET1 TA1 PO (22:53)
--- NOTE | 2017-03-01 00:53 | NUR ---
Pt has been alert since admit to floor. Denies pain. Tele shows a.fib 90's. Sitting 60deg up in bed. Breathes easy in this position. Reports not sleeping well lately, becuase awakes "not being able to breathe." Edema 2+ to BLE. Pt aware he has echo ordered. Has never been told he has CHF, but does know he has hx of a.fib. Instructed pt he will be on low NA diet here. No issues taking PO. Has not voided yet, will monitor. SCDs placed. Pt reports neb tx helped in ED. He is aware he can call for neb if needed (as they are prn).
[2017-03-01 02:37] VITALS: BP 134/77
--- NOTE | 2017-03-01 04:45 | NUR ---
During noc pt requested neb tx. Feels as if that opens up his lungs. RT was called & neb given.
[2017-03-01 07:22] VITALS: BP 136/87
--- NOTE | 2017-03-01 07:32 | Progress Note ---
Subjective General 61-year-old gentleman with past medical history of CAD, hypertension, hyperlipidemia, A. fib, osteoarthritis, presenting with one-week history of 2 pillow orthopnea and chest discomfort. He claims after this illness he developed worsening exercise tolerance and 2 pillow orthopnea. Patient in heart failure. Admission through Dr. Osmany Diego. Subjective: He reports of improvement . The nebulized albuterol. Patient states it is no longer short of breath, feeling better. Patient is hopeful to go home today. Patient had an echocardiogram done. This is showing a left ejection fraction of 35-40%. Patient has been seen by cardiology in the past. Plan on scheduling an appointment for follow-up. In addition, patient has complaints of hip pain, shoulder pain, neck pain. Patient has had shortness of breath intermittently. Patient is not able to check his sugars on a regular basis. Physical Exam Vital Signs / I&Os Vital Signs Date Time Temp Pulse Resp B/P Pulse O2 O2 Flow FiO2 Ox Delivery Rate 03/01 0722 97.7 92 20 136/87 94 Room Air 03/01 0237 98.1 95 20 134/77 98 Room Air 03/01 0046 Room Air 02/28 2155 97.7 109 20 137/85 97 02/28 1917 1.5 I&O 02/28 0800 02/28 1600 03/01 0000 Intake Total 500 Output Total 0 Balance 500 General Appearance Oriented X3, Cooperative Lungs Clear to auscultation, random wheeze, clear movement otherwise. Neck No masses Skin No Breakdown Psych/Mental Status Mental status normal, Mood normal LAB Results Laboratory Tests 02/2893 Chemistry Plasma Magnesium (1.8 - 2.4 mg/dL) 2.3 Hematology WBC (4.5 - 11.5 K/uL) 8.3 RBC (4.50 - 5.90 M/uL) 4.47 Hgb (13.5 - 17.5 gm/dL) 13.1 Hct (41.0 - 53.0 %) 40.1 MCV (80 - 100 fL) 90 MCH (26 - 34 pg) 29 RDW (11.6 - 14.8 %) 17.6 Neut % (Auto) (50 - 75 %) 94.3 Lymph % (Auto) (25 - 40 %) 4.5 [place] % (Auto) (3 - 14 %) 1.1 Eos % (Auto) (0 - 4 %) 0 Baso % (Auto) (0 - 2 %) 0.1 Plt Count, EDTA (150 - 400 K/uL) 264 PUBS MCHC (31 - 37 g/dL) 33 Urines Urine Color YELLOW Urine Appearance CLEAR Urine pH (5.0 - 8.0) 5.5 Ur Specific [place] (1.010 - 1.030) 1.020 Urine Protein (NEGATIVE) NEGATIVE Urine Ketones (NEGATIVE) NEGATIVE Urine Blood (NEGATIVE) 1+ Urine Nitrite (NEGATIVE) NEGATIVE Urine Bilirubin (NEGATIVE) NEGATIVE Urine Urobilinogen (0.2 - 1.0 EU/dL) 0.2 Ur Leukocyte Esterase (NEGATIVE) NEGATIVE Urine RBC (0 - 1 rbc/hpf) 0-1 Urine WBC (0 - 1 wbc/hpf) RARE Ur Epithelial Cells (0 - 5 EPI/hpf) 0-1 Urine Bacteria (NONE SEEN) NONE SEEN Urine Glucose (NEGATIVE) NEGATIVE Urine Comment CULT NOT INDICATED Imaging Procedure:A two-dimensional transthoracic echocardiogram MPRESSION: The left ventricle is mildly dilated. Left ventricular systolic function is moderately reduced. The ejection fraction is estimated to be 35-40%. Regional wall motion abnormalities cannot be excluded due to limited visualization. The right ventricle is borderline dilated. Right ventricular systolic function is borderline reduced. The right ventricular systolic pressure is estimated at 36 mmHg assuming a right atrial pressure of 3 mm Hg. The left atrium is mildly dilated. The right atrium is borderline dilated. There is mild to moderate mitral regurgitation. There is no other significant valvular heart disease. The aortic root is normal size. Assessment and Plan Problem List 1. Atrial fibrillation Plan History of A. fib. Patient has been followed by cardiology elected not to continue with anticoagulation. Patient is on a single aspirin 81 mg daily. Order echocardiogram today. The echo showed 35-40% ejection fraction. There is regional wall motion noted. Patient is to be followed up with cardiology as an outpatient. 2. Wheezing Plan Found to be wheezy on initial examination. Patient has notable and significant improvement with the albuterol ipratropium combination. He will be sent home today with the nebulizer plus albuterol/IpiTroponin solution. 3. Hypertension Plan Patient is relatively well controlled on his blood pressure. She has available resources to maintain blood pressure at a sustainable normal range. 4. Orthopnea Plan Patient with orthopnea. Echocardiogram. This is showing ejection fraction of 35-40%. Patient is not volume overloaded. Patient does have follow-up with cardiology. Patient will be optimized on his home medication. She needs to be on Geovanni, nitroglycerin, beta damaris plus the diuretic. 5. Diabetes Plan Diabetic management should be appropriate. Patient seen with elevated blood sugars and suspended on multiple occasions. Patient should be on optimized medication to maintain his fasting blood sugars. Patient should be seen by case management for care management at his clinic. Starting Metformin at 500 mg twice a day. Current status: Improving stable Anticipated discharge date: 03/01/2017. Anticipated discharge placement: Home Patient care time: Time spent in chart review, patient interview, physical exam, CPOE, and care documentation: 25 minutes Visit to patient today: 1 Complexity of care: Moderate E&M Codes Rounding: Obsv-Comp/[id number]
[2017-03-01 11:05] VITALS: BP 128/80
[2017-03-01 14:16] VITALS: BP 135/97
--- NOTE | 2017-03-01 15:53 | DIAGNOSTIC IMAGING REPORT ---
REFERRING PHYSICIAN/PROVIDER: Osmany Diego MD CONSULTING FLIGHT NURSE: Lencho Crabtree MD INDICATION: 2 pillow orthopnea new onset Procedure: A two-dimensional transthoracic echocardiogram with color flow and Doppler was performed. The study quality was technically difficult due to patient's body habitus. The patient was in atrial fibrillation with rapid ventricular response during the exam with a heart rate exceeding 100 bpm. Left Ventricle: The left ventricle is mildly dilated. Left ventricular wall thickness is borderline increased. Left ventricular systolic function is moderately reduced. The ejection fraction is estimated to be 35-40%. Regional wall motion abnormalities cannot be excluded due to limited visualization. Right Ventricle: The right ventricle is borderline dilated. Right ventricular systolic function is borderline reduced. Atria: The left atrium is mildly dilated. The right atrium is borderline dilated. The interatrial septum is intact with no evidence for an atrial septal defect. Mitral Valve: The mitral valve is normal in structure but abnormal in function. There is mild to moderate mitral regurgitation. Aortic Valve: The aortic valve is trileaflet. The aortic valve opens well. No aortic regurgitation is present. Tricuspid Valve: The tricuspid valve is normal in structure and function. There is a trace or physiologic amount of tricuspid regurgitation. The right ventricular systolic pressure is estimated at 36 mmHg assuming a right atrial pressure of 3 mm Hg. Pulmonic Valve: The pulmonic valve is not well visualized. There is a trace or physiologic amount of pulmonic regurgitation. There is no other significant valvular heart disease. Great Vessels: The aortic root is normal size. The ascending aorta is at the upper limits of normal in size. The IVC is of normal diameter and collapses less than 50% with a sniff. This suggests a right atrial pressure of 8 mm Hg. Pericardium/ Pleura There is no pericardial effusion. IMPRESSION: The left ventricle is mildly dilated. Left ventricular systolic function is moderately reduced. The ejection fraction is estimated to be 35-40%. Regional wall motion abnormalities cannot be excluded due to limited visualization. The right ventricle is borderline dilated. Right ventricular systolic function is borderline reduced. The right ventricular systolic pressure is estimated at 36 mmHg assuming a right atrial pressure of 3 mm Hg. The left atrium is mildly dilated. The right atrium is borderline dilated. There is mild to moderate mitral regurgitation. There is no other significant valvular heart disease. The aortic root is normal size.
[2017-03-01] MEDS ORDERED: IPRATROPIUM BROMIDE/ IN (18:37)
[2017-03-01] MEDS ORDERED: [UNRECOGNIZED DRUG - SUPPLY] IN (18:38)
--- NOTE | 2017-03-01 18:40 | Provider's Discharge Care Plan ---
Problem, Goal, Plan Problem List 1. Atrial fibrillation Goals: Improve disease control Instructions: Follow up as directed 2. Wheezing Goals: Improved health/wellness Instructions: Follow up as needed, Follow up as directed 3. Orthopnea Goals: Diagnostic testing Instructions: Follow up as needed 4. Hypertension Goals: Improve function, Improved health/wellness Instructions: Increase activity level, Reduce stress 5. Diabetes Goals: Improve disease control, Improve nutrition status, Learn about illness Instructions: Increase activity level 6. COPD (chronic obstructive pulmonary disease)
[2017-03-01] MEDS ORDERED: METFORMIN HCL500 MG PO (18:42)
--- NOTE | 2017-03-01 19:29 | NUR ---
WALKED PT DOWN TO [facility]. HAD ALL HIS BELONGINGS. WAS TOLD TO CALL FOR FOLLOW UP APOOINTMENT TOMORROW. WAS TOLD SYMPTOMS TO REPORT (SOB, CHEST PAIN, PAPLITATIONS, N/V, ETC). D/C IV CATHETER. ALL QUESTIONS CONCERNS WERE ADDRESSED BEFORE PATIENT LEAVING. TOLD DR BENITEZ PATIENT HAD BEEN RUNNING [employer]. DR BENITEZ WAS NOT CONCERNED.
--- NOTE | 2017-03-01 19:44 | NUR ---
WAS GIVEN DISCHARGE PACKET AND SIGNED PERSCRIPTIONS WELL. HAD ALL BELONGINGS WTIH HIM.
--- NOTE | 2017-03-01 22:42 | ED DISCHARGE INSTRUCTIONS ---
Patient: ARLINE RASHEED General Instructions [facility] VisitID: [id number] [address] [place] [address] 61y, M Registration Date/Time: 02/28/2017 Chest pain. Dyspnea. COPD. (Electronically signed by Brayden Smith MD 03/01/2017 22:42)
--- NOTE | 2017-03-01 22:42 | ED MED RECONCILIATION SUMMARY ---
Patient: ARLINE RASHEED Medication Reconciliation Report [facility] VisitID: [id number] [address] [place] [address] 61y, M Registration Date/Time: 02/28/2017 Weight: 147.4 kg Height/Length: 74 in. BMI: 41.7 ALLERGIES: Latex, LIsinopril The patient's Home Medications are listed below: THE FOLLOWING MEDICATIONS NEED TO BE RECONCILED: Aspirin Oral (81 mg) 1 tablet, daily Metoprolol Tartrate Oral (50 mg) 1 tablet, two times daily Nitroglycerin SL OxyCODONE HCl Oral 10 mg Percocet Oral (7.5-325 mg) 1 tablet, 4x a day The source(s) of the original Home Medication information: patient The following Medications were given to the patient in the Emergency Department: Aspirin [PO] PO 325 mg, administered: 02/28/2017 4:27:00 PM Lasix [IVP] IVP 10 mg, administered: 02/28/2017 6:31:00 PM SOLU-MEDROL [IVP] IVP 125 mg, administered: 02/28/2017 6:37:00 PM Duoneb [Neb Tx] Neb TX 1 unit dose, administered: 02/28/2017 7:16:00 PM The following Medications were prescribed to the patient: None.
--- NOTE | 2017-03-01 22:42 | ED MAR SUMMARY ---
..... Medication Administration Record [facility] [address] [place] [address] Patient: ARLINE RASHEED Visit ID: [id number] 61y, M Weight: 147.4 kg Height/Length: 74 in BMI: 41.7 ALLERGIES: Latex, LIsinopril Given 16:27 02/28/2017 Michaela Valdez RNorma Medication Administered: ASPIRIN [PO], Dose: 325 mg PO. Medication Ordered: Aspirin PO 325 mg (Do not crush or chew, NOW). Given 18:31 02/28/2017 Michaela Valdez R.N. Medication Administered: LASIX [IVP], Dose: 10 mg IVP over 1 minute(s), Site: #1 right AC. Medication Ordered: Lasix IV 10 mg (NOW). Given 18:37 02/28/2017 Michaela Valdez R.N. Medication Administered: SOLU-MEDROL [IVP] (METHYLPREDNISOLONE SODIUM SUCC), Dose: 125 mg IVP over 2 minute(s), Site: #1 right AC. Medication Ordered: Solu-MEDROL IV 125 mg (NOW). Given 19:16 02/28/2017 Manoj Mosqueda Medication Administered: DUONEB [NEB TX] (IPRATROPIUM-ALBUTEROL), Dose: 1 unit dose Neb TX. Medication Ordered: DuoNeb Neb Tx 1 unit dose (NOW).
--- NOTE | 2017-03-01 22:42 | ED DISCHARGE INSTRUCTIONS ---
Patient: ARLINE RASHEED General Instructions [facility] VisitID: [id number] [address] [place] [address] 61y, M Registration Date/Time: 02/28/2017 Chest pain. Dyspnea. COPD. (Electronically signed by Brayden Smith MD 03/01/2017 22:42)
--- NOTE | 2017-03-01 22:42 | ED MAR SUMMARY ---
..... Medication Administration Record [facility] [address] [place] [address] Patient: ARLINE RASHEED Visit ID: [id number] 61y, M Weight: 147.4 kg Height/Length: 74 in BMI: 41.7 ALLERGIES: Latex, LIsinopril Given 16:27 02/28/2017 Michaela Valdez RNorma Medication Administered: ASPIRIN [PO], Dose: 325 mg PO. Medication Ordered: Aspirin PO 325 mg (Do not crush or chew, NOW). Given 18:31 02/28/2017 Michaela Valdez R.N. Medication Administered: LASIX [IVP], Dose: 10 mg IVP over 1 minute(s), Site: #1 right AC. Medication Ordered: Lasix IV 10 mg (NOW). Given 18:37 02/28/2017 Michaela Valdez R.N. Medication Administered: SOLU-MEDROL [IVP] (METHYLPREDNISOLONE SODIUM SUCC), Dose: 125 mg IVP over 2 minute(s), Site: #1 right AC. Medication Ordered: Solu-MEDROL IV 125 mg (NOW). Given 19:16 02/28/2017 Manoj Mosqueda Medication Administered: DUONEB [NEB TX] (IPRATROPIUM-ALBUTEROL), Dose: 1 unit dose Neb TX. Medication Ordered: DuoNeb Neb Tx 1 unit dose (NOW).
--- NOTE | 2017-03-01 22:42 | ED MED RECONCILIATION SUMMARY ---
Patient: ARLINE RASHEED Medication Reconciliation Report [facility] VisitID: [id number] [address] [place] [address] 61y, M Registration Date/Time: 02/28/2017 Weight: 147.4 kg Height/Length: 74 in. BMI: 41.7 ALLERGIES: Latex, LIsinopril The patient's Home Medications are listed below: THE FOLLOWING MEDICATIONS NEED TO BE RECONCILED: Aspirin Oral (81 mg) 1 tablet, daily Metoprolol Tartrate Oral (50 mg) 1 tablet, two times daily Nitroglycerin SL OxyCODONE HCl Oral 10 mg Percocet Oral (7.5-325 mg) 1 tablet, 4x a day The source(s) of the original Home Medication information: patient The following Medications were given to the patient in the Emergency Department: Aspirin [PO] PO 325 mg, administered: 02/28/2017 4:27:00 PM Lasix [IVP] IVP 10 mg, administered: 02/28/2017 6:31:00 PM SOLU-MEDROL [IVP] IVP 125 mg, administered: 02/28/2017 6:37:00 PM Duoneb [Neb Tx] Neb TX 1 unit dose, administered: 02/28/2017 7:16:00 PM The following Medications were prescribed to the patient: None.
[2017-03-04] MEDS ORDERED: IPRATROPIUM BROMIDE/ IN (13:31)
== END 2017-03-01 19:40 | disposition home or self-care (01) ==
LOC: ED SRH 16:22 → ACUTE2 SRH 20:24 → TRANS SRH 20:24 → ACUTE2 SRH 21:55
PROVIDERS: ADMIT Internal Medicine
DX: R06.2 Wheezing (principal); R06.01 Orthopnea; I48.91 Unspecified atrial fibrillation; E11.9 Type 2 diabetes mellitus without complications; F17.210 Nicotine dependence, cigarettes, uncomplicated; I10 Essential (primary) hypertension; E78.5 Hyperlipidemia, unspecified; I25.10 Atherosclerotic heart disease of native coronary artery without angina pectoris
CPT/HCPCS: 29230; 90004; 90074; 90100; 90616; 91320; 91556; 92235; 92530; 92610; 92720; 94001; 94060; 95059

== ENCOUNTER 2017-03-30 14:14 | Emergency (ER) | payer OTHER ==
[~2017-03-30 14:14] MED LIST: ASPIRIN ADULT L81 M1 PO; IPRATROPIUM BROMIDE/ IN; METFORMIN HCL500 MG PO; METOPROLOL TART50 MG PO; NITROSTAT0.4 MG SL; PERCOCET1 TA1 PO; ROXICODONE5 MG PO; [UNRECOGNIZED DRUG - SUPPLY] IN
--- NOTE | 2017-03-30 16:07 | DIAGNOSTIC IMAGING REPORT ---
PROCEDURE: XR CHEST 1 VIEW INDICATION: SHORTNESS OF BREATH TECHNIQUE: Portable AP view 04:00 p.m. COMPARISON: Chest 02/28/2017 FINDINGS: Mild cardiomegaly with increased interstitial markings No infiltrates. Mild degenerative changes of the spine. IMPRESSION: 1. Mild cardiomegaly and CHF.
--- NOTE | 2017-03-30 17:53 | ED ORDER SUMMARY ---
..... Patient: ARLINE RASHEED OrderSheet [facility] VisitID: [id number] [address] [place] [address] 61y, M Registration Date/Time: 03/30/2017 ORDER SHEET Weight: 145.1 kg (stated) Allergies: Latex, LIsinopril GENERAL ORDERS: Chest 1V Urgent (15:48 03/30/2017 Robert ULLOA) (Ack 15:50 ANDRIAoerandaner) (15:57 ALawrence ER Tech1) Paralegals (Continuous) (15:49 03/30/2017 Robert ULLOA) (15:59 KKnebel R.N.) CBC w Diff Urgent (15:49 03/30/2017 Robert ULLOA) (Ack 15:50 Jc) (15:59 KKnebel R.N.) CMP Urgent (15:49 03/30/2017 Robert ULLOA) (Ack 15:50 Jc) (15:59 KKnebel R.N.) UA-Culture if indicated Urgent (15:49 03/30/2017 Robert ULLOA) (Ack 15:50 cJ) (16:17 KKnebel R.N.) Amylase Urgent (15:49 03/30/2017 Robert ULLOA) (Ack 15:50 Jc) (15:59 KKnebel R.N.) Lipase Urgent (15:49 03/30/2017 Robert ULLOA) (Ack 15:50 Jc) (15:59 KKnebel R.N.) CPK Urgent (15:49 03/30/2017 Robert ULLOA) (Ack 15:50 Jc) (15:59 KKnebel R.N.) Troponin-I Urgent (15:49 03/30/2017 Robert ULLOA) (Ack 15:50 Jc) (16:00 KKnebel R.N.) BNP Urgent (15:49 03/30/2017 Robert ULLOA) (Ack 15:50 Jc) (16:00 KKnebel R.N.) Pulse oximeter (15:49 03/30/2017 Robert ULLOA) (15:59 KKnebel R.NAmalia) EKG - ER Stat (15:49 03/30/2017 Robert ULLOA) (Ack 16:03 ALawrence ER Tech1) (16:17 Cholo Tee.NAmalia) (16:23 Jc) D-Dimer Urgent (16:02 03/30/2017 Robert ULLOA) (16:04 Jc) MEDICATION ORDERS: IV FLUIDS: IV Saline Lock (15:49 03/30/2017 Robert ULLOA) (16:00 Cholo R.N.) Diltiazem IV 10 mg (HIGH ALERT MEDICATION, NOW) (16:11 03/30/2017 Robert ULLOA) (16:24 Cholo Tee.NAmalia) Lasix IV 40 mg (NOW) (16:12 03/30/2017 Robert ULLOA) (16:25 Cholo R.NAmalia) ORDER SHEET NOTES: [Electronically signed by Regina Castellanos R.N. (21:12 03/30/2017)] [Electronically signed by Brayden Smith MD (21:13 04/06/2017)] [Electronically locked/signed by Regina Castellanos R.N. (21:12 03/30/2017)]
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
--- NOTE | 2017-03-30 17:53 | ED ORDER SUMMARY ---
..... 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) (15:49 03/30/2017 Robert ULLOA) (15:59 KKnebel R.N.) CBC w Diff Urgent (15:49 03/30/2017 Robert ULLOA) (Ack 15:50 Jc) (15:59 KKnebel R.N.) CMP Urgent (15:49 03/30/2017 Robert ULLOA) (Ack 15:50 Jc) (15:59 KKnebel R.N.) UA-Culture if indicated Urgent (15:49 03/30/2017 Robert ULLOA) (Ack 15:50 Jc) (16:17 KKnebel R.N.) Amylase Urgent (15:49 03/30/2017 Robert ULLOA) (Ack 15:50 Jc) (15:59 KKnebel R.N.) Lipase Urgent (15:49 03/30/2017 Robetr ULLOA) (Ack 15:50 Jc) (15:59 KKnebel R.N.) CPK Urgent (15:49 03/30/2017 Robert ULLOA) (Ack 15:50 Jc) (15:59 KKnebel R.N.) Troponin-I Urgent (15:49 03/30/2017 Robert ULLOA) (Ack 15:50 Jc) (16:00 KKnebel R.N.) BNP Urgent (15:49 03/30/2017 Robert ULLOA) (Ack 15:50 Jc) (16:00 KKnebel R.N.) Pulse oximeter (15:49 03/30/2017 Robert ULLOA) (15:59 KKnebel R.NAmalia) EKG - ER Stat (15:49 03/30/2017 Robert ULLOA) (Ack 16:03 ALawrence ER Tech1) (16:17 Cholo Tee.NAmalia) (16:23 Jc) D-Dimer Urgent (16:02 03/30/2017 Robert ULLOA) (16:04 Jc) MEDICATION ORDERS: IV FLUIDS: IV Saline Lock (15:49 03/30/2017 Robert ULLOA) (16:00 Cohlo R.N.) Diltiazem IV 10 mg (HIGH ALERT MEDICATION, NOW) (16:11 03/30/2017 Robert ULLOA) (16:24 Cholo Tee.NAmalia) Lasix IV 40 mg (NOW) (16:12 03/30/2017 Robert ULLOA) (16:25 Cholo R.NAmalia) ORDER SHEET NOTES: [Electronically signed by Regina Castellanos R.N. (21:12 03/30/2017)] [Electronically signed by Brayden Smith MD (21:13 04/06/2017)] [Electronically locked/signed by Regina Castellanos R.N. (21:12 03/30/2017)]
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
--- NOTE | 2017-04-06 21:13 | ED MAR SUMMARY ---
..... Medication Administration Record [facility] [address] [place] [address] Patient: ARLINE RASHEED Visit ID: [id number] 61y, M Weight: 145.1 kg Height/Length: 74 in BMI: 41.1 ALLERGIES: Latex, LIsinopril Given 16:03/30/2017 Regina Castellanos, RNorma Medication Administered: DILTIAZEM [IVP], Dose: 10 mg IVP over 2 minute(s), Site: #1 right AC. Medication Ordered: Diltiazem IV 10 mg (HIGH ALERT MEDICATION, NOW). Given 16:03/30/2017 Regina Castellanos RNorma Medication Administered: LASIX [IVP], Dose: 40 mg IVP over 2 minute(s), Site: #1 right AC. Medication Ordered: Lasix IV 40 mg (NOW).
--- NOTE | 2017-04-06 21:13 | ED DISCHARGE INSTRUCTIONS ---
Patient: ARLINE RASHEED General Instructions [facility] VisitID: [id number] [place] [address] 61y, M Registration Date/Time: 03/30/2017 Chronic congestive heart failure INSTRUCTIONS Do not smoke. Seek medical help to quit smoking. Warnings: Further evaluation is necessary. GENERAL WARNINGS: Return or contact your physician immediately if your condition worsens or changes unexpectedly, if not improving as expected, or if other problems arise. Your Current Medications: CONTINUE TAKING THE FOLLOWING MEDICATIONS: Albuterol Sulfate Inhalation. Aspirin Oral : Tablet 81 mg, 1 tablet daily. Metoprolol Tartrate Oral : Tablet 50 mg, 1 tablet two times daily. Nitroglycerin SL*. OxyCODONE HCl Oral : 10 mg. Percocet Oral : Tablet 7.5-325 mg, 1 tablet 4x a day. Prescription Medications: K-Dur 10 mEq: take 1 orally every 24 hours. Dispense fifteen (15). No refills. Substitution is permissible. Lasix 20 mg: Take 1 orally every 24 hours. Dispense fifteen (15). No refills. Substitution is permissible. Follow-up: Follow up with a tie presser Dr. Crabtree in seven days as scheduled. Understanding of the discharge instructions verbalized by patient. ADDITIONAL INFORMATION Heart Failure (Left Or Right Sided) The heart is a large muscle that pumps blood throughout the body. Blood carries oxygen to all the organs, muscles, and skin of your body. After the body takes the oxygen out of the blood, the blood returns to the heart. The right side of the heart collects that blood and pumps it to the lungs to receive fresh oxygen. This oxygen-rich blood from the lungs then returns to the left side of the heart where it is pumped back out to the rest of the body, starting the process all over. Heart Failure (HF) occurs when the heart muscle is weakened. This affects the pumping action of the heart. When the right side of the heart is weakened, it cant handle the blood it is receiving from the rest of the body. This blood returns to the heart through veins. When too much pressure builds up in the veins fluid leaks out into the tissues. [place] then causes that fluid to spread to those parts of the body that are the lowest. Therefore, one of the first symptoms of HF include swelling in the feet and ankles. If the condition worsens, the swelling can even go up past the knees. When the left side of the heart is weakened, it cant handle the blood it is receiving from the lungs. Pressure then builds up in the veins of the lungs, causing fluid to leakinto the lung tissues. This may be referred to as congestive heart failure.This causes you to feel short of breath, weak, or dizzy. These symptoms are often worse with exertion, such as climbing stairs or walking up hills. Lying flat is uncomfortable and can make your breathing worse. This may make sleeping difficult and force you to useextra pillows to sleep well. This condition may not only affect the right side of the heart or only the left side. While it may have started on one side, it often affects both sides. Causes of heart failure Coronary artery disease Prior heart attack (also known as acute myocardial infarction, or AMI) High blood pressure Damaged heart valve Diabetes Obesity Cigarette smoking Alcohol abuse Treatment Heart failure is a chronic condition. There is no cure. The purpose of medical treatment is to improve the pumping action of the heart, and remove excess water from the body. A number of medications can help achieve this goal,improvesymptoms and prevent the heart from becoming weaker. Another major goal is to better treat the caues of heart failure, such as diabetes, high blood pressure, and your lifestyle. Home care Check your weight every day. A sudden increase in weight gain could mean worsening heart failure. Use the same scale every day Weigh yourself at the same time every day Make sure the scale is on the floor, not on a rug Keep a record of your weight every day, so your doctor can see it. If you are not given a log sheet for this, keep a separate journal for this purpose. Reduce your salt (sodium) intake. Avoid high-salt foods (olives, pickles, smoked meats, salted potato chips, etc.). Do not add salt to your food at the table and use only small amounts of salt when cooking. Follow your doctors recommendations about how much fluid intake is safe. Stop smoking. Reduce alcohol use. Lose weight if you are overweight. The excess weight adds a lot of stress on the workload of the heart. Stay active. Talk to your doctor about an exercise program that is safe for your heart. Keep your feet elevated to reduce swelling. Ask your doctor about support hose as a preventive treatment for daytime leg swelling. Besides taking your medicine as instructed, an important part of treatment includes lifestyle changes such as diet, physical activity, stopping smoking, and weight control. Improve your diet. Often in the hospital, people are given a "heart healthy diet." This includes more fresh foods, lower fat, less processed foots, and lower salt. Follow-up care Follow up with your doctor as directed by our staff. Make sure to keep any appointments that were made for you as this can help better control heart failure. If an X-ray was done, you will be notified of any new findings that may affect your care. Call 911 Call 911 if you: Become severely short of breath Feel lightheaded, or feel like you might pass out or faint Have chest pain or discomfort that is different than usual, the medicines your doctor told you to use for this do not help, or the pain lasts longer than 10 to 15 minutes Suddendly develop a rapid heart rate When to seek medical care Get prompt medical attention if you have any of the following signs of worsening heart failure: Sudden weight gain (3or more pounds in one day or5or more pounds in one week) Trouble breathing not related to being active New or increased swelling of your legs or ankles Swelling or pain in your abdomen Breathing trouble at night (waking up short of breath, needing more pillows to breathe) Frequent coughing that doesnt go away Feeling much more tired than usual How To Quit Smoking Smoking is one of the hardest habits to break. About half of all those who have ever smoked have been able to quit, and most of those (about 70%) who still smoke want to quit. Here are some of the best ways to stop smoking. Keep Trying: It takes most smokers about 8 tries before they are finally able to fully quit. So, the more often you try and fail, the better your chance of quitting the next time! So, don't give up! Go Cold Allen: Most ex-smokers quit cold turkey. Trying to cut back gradually doesn't seem to work as well, perhaps because it continues the smoking habit. Also, it is possible to fool yourself by inhaling more while smoking fewer cigarettes. This results in the same amount of nicotine in your body! Get Support: Support programs can make an important difference, especially for the heavy smoker. These groups offer lectures, methods to change your behavior and peer support. Call the free national Quitline for more information. 180-RJQF-XIB (012-504-5776). Low-cost or free programs are offered by many hospitals, local chapters of the [place] [employer] (957-014-1139) and the [place] [employer] (171-307-7021). Support at home is important too. Non-smokers can help by offering praise and encouragement. If the smoker fails to quit, encourage them to try again! Sdcf-Qft-Oudocib Medicines: For those who can't quit on their own, Nicotine Replacement Therapy (NRT) may make quitting much easier. Certain aids such as the nicotine patch, gum and lozenge are available without a prescription. However, it is best to use these under the guidance of your doctor. The skin patch provides a steady supply of nicotine to the body. Nicotine gum and lozenge gives temporary bursts of low levels of nicotine. Both methods take the edge off the craving for cigarettes. WARNING: If you feel symptoms of nicotine overdose, such as nausea, vomiting, dizziness, weakness, or fast heartbeat, stop using these and see your doctor. Prescription Medicines: After evaluating your smoking patterns and prior attempts at quitting, your doctor may offer a prescription medicine such as bupropion (Zyban, Wellbutrin), varenicline (Chantix, Champix), a niocotine inhaler or nasal spray. Each has its unique advantage and side effects which your doctor can review with you. Health Benefits Of Quitting: The benefits of quitting start right away and keep improving the longer you go without smokin minutes: blood pressure and pulse return to normal 8 hours: oxygen levels return to normal 2 days: ability to smell and taste begins to improve as damaged nerves start to regrow 2-3 weeks: circulation and lung function improves 1-9 months: decreased cough, congestion and shortness of breath; less tired 1 year: risk of heart attack decreases by half 5 years: risk of lung cancer decreases by half; risk of stroke becomes the same as a non-smoker For information about how to quit smoking, visit the following links: National Cancer [place] , Clearing the Air, Quit Smoking Today - an online booklet. http://www.smokefree.gov/pubs/clearing_the_air.pdf Smokefree.gov http://smokefree.gov/ QuitNet http://www.quitnet.com/ Furosemide Oral tablet What is this medicine? FUROSEMIDE (brodie [place] se liao) is a diuretic. It helps you make more urine and to lose salt and excess water from your body. This medicine is used to treat high blood pressure, and edema or swelling from heart, kidney, or liver disease. How should I use this medicine? Take this medicine by mouth with a glass of water. Follow the directions on the prescription label. You may take this medicine with or without food. If it upsets your stomach, take it with food or milk. Do not take your medicine more often than directed. Remember that you will need to pass more urine after taking this medicine. Do not take your medicine at a time of day that will cause you problems. Do not take at bedtime. Talk to your juvenile justice officer regarding the use of this medicine in children. While this drug may be prescribed for selected conditions, precautions do apply. What side effects may I notice from receiving this medicine? Side effects that you should report to your doctor or health group care worker as soon as possible: blood in urine or stools dry mouth fever or chills hearing loss or ringing in the ears irregular heartbeat muscle pain or weakness, cramps skin rash stomach upset, pain, or nausea tingling or numbness in the hands or feet unusually weak or tired vomiting or diarrhea yellowing of the eyes or skin Side effects that usually do not require medical attention (report to your doctor or health group care worker if they continue or are bothersome): headache loss of appetite unusual bleeding or bruising What may interact with this medicine? aspirin and aspirin-like medicines certain antibiotics chloral hydrate cisplatin cyclosporine digoxin diuretics laxatives lithium medicines for blood pressure medicines that relax muscles for surgery methotrexate NSAIDs, medicines for pain and inflammation like ibuprofen, naproxen, or indomethacin phenytoin steroid medicines like prednisone or cortisone sucralfate What if I miss a dose? If you miss a dose, take it as soon as you can. If it is almost time for your next dose, take only that dose. Do not take double or extra doses. Where should I keep my medicine? Keep out of the reach of children. Store at room temperature between 15 and 30 degrees C (59 and 86 degrees F). Protect from light. Throw away any unused medicine after the expiration date. What should I tell my health care provider before I take this medicine? They need to know if you have any of these conditions: abnormal blood electrolytes diarrhea or vomiting gout heart disease kidney disease, small amounts of urine, or difficulty passing urine liver disease an unusual or allergic reaction to furosemide, sulfa drugs, other medicines, foods, dyes, or preservatives or trying to get breast-feeding What should I watch for while using this medicine? Visit your doctor or health group care worker for regular checks on your progress. Check your blood pressure regularly. Ask your doctor or health group care worker what your blood pressure should be, and when you should contact him or her. If you are a diabetic, check your blood sugar as directed. You may need to be on a special diet while taking this medicine. Check with your doctor. Also, ask how many glasses of fluid you need to drink a day. You must not get dehydrated. You may get drowsy or dizzy. Do not drive, use machinery, or do anything that needs mental alertness until you know how this drug affects you. Do not stand or sit up quickly, especially if you are an older patient. This reduces the risk of dizzy or fainting spells. Alcohol can make you more drowsy and dizzy. Avoid alcoholic drinks. This medicine can make you more sensitive to the sun. Keep out of the sun. If you cannot avoid being in the sun, wear protective clothing and use sunscreen. Do not use sun lamps or tanning beds/booths. You have been given the following additional information: Heart Failure, General Smoking Cessation Furosemide Oral tablet (Electronically signed by Brayden Smith MD 04/06/2017 21:13)
--- NOTE | 2017-04-06 21:13 | ED DISCHARGE INSTRUCTIONS ---
Patient: ARLINE RASHEED General Instructions [facility] VisitID: [id number] [place] [address] 61y, M Registration Date/Time: 03/30/2017 Chronic congestive heart failure INSTRUCTIONS Do not smoke. Seek medical help to quit smoking. Warnings: Further evaluation is necessary. GENERAL WARNINGS: Return or contact your physician immediately if your condition worsens or changes unexpectedly, if not improving as expected, or if other problems arise. Your Current Medications: CONTINUE TAKING THE FOLLOWING MEDICATIONS: Albuterol Sulfate Inhalation. Aspirin Oral : Tablet 81 mg, 1 tablet daily. Metoprolol Tartrate Oral : Tablet 50 mg, 1 tablet two times daily. Nitroglycerin SL*. OxyCODONE HCl Oral : 10 mg. Percocet Oral : Tablet 7.5-325 mg, 1 tablet 4x a day. Prescription Medications: K-Dur 10 mEq: take 1 orally every 24 hours. Dispense fifteen (15). No refills. Substitution is permissible. Lasix 20 mg: Take 1 orally every 24 hours. Dispense fifteen (15). No refills. Substitution is permissible. Follow-up: Follow up with a protective signal repairer helper Dr. Crabtree in seven days as scheduled. Understanding of the discharge instructions verbalized by patient. ADDITIONAL INFORMATION Heart Failure (Left Or Right Sided) The heart is a large muscle that pumps blood throughout the body. Blood carries oxygen to all the organs, muscles, and skin of your body. After the body takes the oxygen out of the blood, the blood returns to the heart. The right side of the heart collects that blood and pumps it to the lungs to receive fresh oxygen. This oxygen-rich blood from the lungs then returns to the left side of the heart where it is pumped back out to the rest of the body, starting the process all over. Heart Failure (HF) occurs when the heart muscle is weakened. This affects the pumping action of the heart. When the right side of the heart is weakened, it cant handle the blood it is receiving from the rest of the body. This blood returns to the heart through veins. When too much pressure builds up in the veins fluid leaks out into the tissues. [place] then causes that fluid to spread to those parts of the body that are the lowest. Therefore, one of the first symptoms of HF include swelling in the feet and ankles. If the condition worsens, the swelling can even go up past the knees. When the left side of the heart is weakened, it cant handle the blood it is receiving from the lungs. Pressure then builds up in the veins of the lungs, causing fluid to leakinto the lung tissues. This may be referred to as congestive heart failure.This causes you to feel short of breath, weak, or dizzy. These symptoms are often worse with exertion, such as climbing stairs or walking up hills. Lying flat is uncomfortable and can make your breathing worse. This may make sleeping difficult and force you to useextra pillows to sleep well. This condition may not only affect the right side of the heart or only the left side. While it may have started on one side, it often affects both sides. Causes of heart failure Coronary artery disease Prior heart attack (also known as acute myocardial infarction, or AMI) High blood pressure Damaged heart valve Diabetes Obesity Cigarette smoking Alcohol abuse Treatment Heart failure is a chronic condition. There is no cure. The purpose of medical treatment is to improve the pumping action of the heart, and remove excess water from the body. A number of medications can help achieve this goal,improvesymptoms and prevent the heart from becoming weaker. Another major goal is to better treat the caues of heart failure, such as diabetes, high blood pressure, and your lifestyle. Home care Check your weight every day. A sudden increase in weight gain could mean worsening heart failure. Use the same scale every day Weigh yourself at the same time every day Make sure the scale is on the floor, not on a rug Keep a record of your weight every day, so your doctor can see it. If you are not given a log sheet for this, keep a separate journal for this purpose. Reduce your salt (sodium) intake. Avoid high-salt foods (olives, pickles, smoked meats, salted potato chips, etc.). Do not add salt to your food at the table and use only small amounts of salt when cooking. Follow your doctors recommendations about how much fluid intake is safe. Stop smoking. Reduce alcohol use. Lose weight if you are overweight. The excess weight adds a lot of stress on the workload of the heart. Stay active. Talk to your doctor about an exercise program that is safe for your heart. Keep your feet elevated to reduce swelling. Ask your doctor about support hose as a preventive treatment for daytime leg swelling. Besides taking your medicine as instructed, an important part of treatment includes lifestyle changes such as diet, physical activity, stopping smoking, and weight control. Improve your diet. Often in the hospital, people are given a "heart healthy diet." This includes more fresh foods, lower fat, less processed foots, and lower salt. Follow-up care Follow up with your doctor as directed by our staff. Make sure to keep any appointments that were made for you as this can help better control heart failure. If an X-ray was done, you will be notified of any new findings that may affect your care. Call 911 Call 911 if you: Become severely short of breath Feel lightheaded, or feel like you might pass out or faint Have chest pain or discomfort that is different than usual, the medicines your doctor told you to use for this do not help, or the pain lasts longer than 10 to 15 minutes Suddendly develop a rapid heart rate When to seek medical care Get prompt medical attention if you have any of the following signs of worsening heart failure: Sudden weight gain (3or more pounds in one day or5or more pounds in one week) Trouble breathing not related to being active New or increased swelling of your legs or ankles Swelling or pain in your abdomen Breathing trouble at night (waking up short of breath, needing more pillows to breathe) Frequent coughing that doesnt go away Feeling much more tired than usual How To Quit Smoking Smoking is one of the hardest habits to break. About half of all those who have ever smoked have been able to quit, and most of those (about 70%) who still smoke want to quit. Here are some of the best ways to stop smoking. Keep Trying: It takes most smokers about 8 tries before they are finally able to fully quit. So, the more often you try and fail, the better your chance of quitting the next time! So, don't give up! Go Cold [place]: Most ex-smokers quit cold turkey. Trying to cut back gradually doesn't seem to work as well, perhaps because it continues the smoking habit. Also, it is possible to fool yourself by inhaling more while smoking fewer cigarettes. This results in the same amount of nicotine in your body! Get Support: Support programs can make an important difference, especially for the heavy smoker. These groups offer lectures, methods to change your behavior and peer support. Call the free national Quitline for more information. 234-HDVS-JOO (692-406-6327). Low-cost or free programs are offered by many hospitals, local chapters of the [employer] (899-164-9019) and the [employer] (885-839-7337). Support at home is important too. Non-smokers can help by offering praise and encouragement. If the smoker fails to quit, encourage them to try again! Lcjo-Wje-Anhwxut Medicines: For those who can't quit on their own, Nicotine Replacement Therapy (NRT) may make quitting much easier. Certain aids such as the nicotine patch, gum and lozenge are available without a prescription. However, it is best to use these under the guidance of your doctor. The skin patch provides a steady supply of nicotine to the body. Nicotine gum and lozenge gives temporary bursts of low levels of nicotine. Both methods take the edge off the craving for cigarettes. WARNING: If you feel symptoms of nicotine overdose, such as nausea, vomiting, dizziness, weakness, or fast heartbeat, stop using these and see your doctor. Prescription Medicines: After evaluating your smoking patterns and prior attempts at quitting, your doctor may offer a prescription medicine such as bupropion (Zyban, Wellbutrin), varenicline (Chantix, Champix), a niocotine inhaler or nasal spray. Each has its unique advantage and side effects which your doctor can review with you. Health Benefits Of Quitting: The benefits of quitting start right away and keep improving the longer you go without smokin minutes: blood pressure and pulse return to normal 8 hours: oxygen levels return to normal 2 days: ability to smell and taste begins to improve as damaged nerves start to regrow 2-3 weeks: circulation and lung function improves 1-9 months: decreased cough, congestion and shortness of breath; less tired 1 year: risk of heart attack decreases by half 5 years: risk of lung cancer decreases by half; risk of stroke becomes the same as a non-smoker For information about how to quit smoking, visit the following links: National Cancer [place] , Clearing the Air, Quit Smoking Today - an online booklet. http://www.smokefree.gov/pubs/clearing_the_air.pdf Smokefree.gov http://smokefree.gov/ QuitNet http://www.quitnet.com/ Furosemide Oral tablet What is this medicine? FUROSEMIDE (brodie [place] se liao) is a diuretic. It helps you make more urine and to lose salt and excess water from your body. This medicine is used to treat high blood pressure, and edema or swelling from heart, kidney, or liver disease. How should I use this medicine? Take this medicine by mouth with a glass of water. Follow the directions on the prescription label. You may take this medicine with or without food. If it upsets your stomach, take it with food or milk. Do not take your medicine more often than directed. Remember that you will need to pass more urine after taking this medicine. Do not take your medicine at a time of day that will cause you problems. Do not take at bedtime. Talk to your cook helper vegetable regarding the use of this medicine in children. While this drug may be prescribed for selected conditions, precautions do apply. What side effects may I notice from receiving this medicine? Side effects that you should report to your doctor or health personal carer as soon as possible: blood in urine or stools dry mouth fever or chills hearing loss or ringing in the ears irregular heartbeat muscle pain or weakness, cramps skin rash stomach upset, pain, or nausea tingling or numbness in the hands or feet unusually weak or tired vomiting or diarrhea yellowing of the eyes or skin Side effects that usually do not require medical attention (report to your doctor or health personal carer if they continue or are bothersome): headache loss of appetite unusual bleeding or bruising What may interact with this medicine? aspirin and aspirin-like medicines certain antibiotics chloral hydrate cisplatin cyclosporine digoxin diuretics laxatives lithium medicines for blood pressure medicines that relax muscles for surgery methotrexate NSAIDs, medicines for pain and inflammation like ibuprofen, naproxen, or indomethacin phenytoin steroid medicines like prednisone or cortisone sucralfate What if I miss a dose? If you miss a dose, take it as soon as you can. If it is almost time for your next dose, take only that dose. Do not take double or extra doses. Where should I keep my medicine? Keep out of the reach of children. Store at room temperature between 15 and 30 degrees C (59 and 86 degrees F). Protect from light. Throw away any unused medicine after the expiration date. What should I tell my health care provider before I take this medicine? They need to know if you have any of these conditions: abnormal blood electrolytes diarrhea or vomiting gout heart disease kidney disease, small amounts of urine, or difficulty passing urine liver disease an unusual or allergic reaction to furosemide, sulfa drugs, other medicines, foods, dyes, or preservatives or trying to get breast-feeding What should I watch for while using this medicine? Visit your doctor or health personal carer for regular checks on your progress. Check your blood pressure regularly. Ask your doctor or health personal carer what your blood pressure should be, and when you should contact him or her. If you are a diabetic, check your blood sugar as directed. You may need to be on a special diet while taking this medicine. Check with your doctor. Also, ask how many glasses of fluid you need to drink a day. You must not get dehydrated. You may get drowsy or dizzy. Do not drive, use machinery, or do anything that needs mental alertness until you know how this drug affects you. Do not stand or sit up quickly, especially if you are an older patient. This reduces the risk of dizzy or fainting spells. Alcohol can make you more drowsy and dizzy. Avoid alcoholic drinks. This medicine can make you more sensitive to the sun. Keep out of the sun. If you cannot avoid being in the sun, wear protective clothing and use sunscreen. Do not use sun lamps or tanning beds/booths. You have been given the following additional information: Heart Failure, General Smoking Cessation Furosemide Oral tablet (Electronically signed by Brayden Smith MD 04/06/2017 21:13)
--- NOTE | 2017-04-06 21:13 | ED MED RECONCILIATION SUMMARY ---
Patient: ARLINE RASHEED Medication Reconciliation Report [facility] VisitID: [id number] [address] [place] [address] 61y, M Registration Date/Time: 03/30/2017 Weight: 145.1 kg Height/Length: 74 in. BMI: 41.1 ALLERGIES: Latex, LIsinopril The patient's Home Medications are listed below: CONTINUE TAKING THE FOLLOWING MEDICATIONS: Albuterol Sulfate Inhalation Aspirin Oral (81 mg) 1 tablet, daily Metoprolol Tartrate Oral (50 mg) 1 tablet, two times daily Nitroglycerin SL OxyCODONE HCl Oral 10 mg Percocet Oral (7.5-325 mg) 1 tablet, 4x a day The source(s) of the original Home Medication information: Not obtained. The following Medications were given to the patient in the Emergency Department: Diltiazem [IVP] IVP 10 mg, administered: 03/30/2017 4:24:00 PM Lasix [IVP] IVP 40 mg, administered: 03/30/2017 4:25:00 PM The following Medications were prescribed to the patient: K-Dur 10 mEq: take 1 orally every 24 hours. Dispense fifteen (15). No refills. Substitution is permissible. -- Brayden Smith MD Lasix 20 mg: Take 1 orally every 24 hours. Dispense fifteen (15). No refills. Substitution is permissible. -- Brayden Smith MD
--- NOTE | 2017-04-06 21:13 | ED MAR SUMMARY ---
..... Medication Administration Record [facility] [address] [place] [address] Patient: ARLINE RASHEED Visit ID: [id number] 61y, M Weight: 145.1 kg Height/Length: 74 in BMI: 41.1 ALLERGIES: Latex, LIsinopril Given 16:03/30/2017 Regina Castellanos, RNorma Medication Administered: DILTIAZEM [IVP], Dose: 10 mg IVP over 2 minute(s), Site: #1 right AC. Medication Ordered: Diltiazem IV 10 mg (HIGH ALERT MEDICATION, NOW). Given 16:03/30/2017 Regina Castellanos RNorma Medication Administered: LASIX [IVP], Dose: 40 mg IVP over 2 minute(s), Site: #1 right AC. Medication Ordered: Lasix IV 40 mg (NOW).
--- NOTE | 2017-04-06 21:13 | ED MED RECONCILIATION SUMMARY ---
Patient: ARLINE RASHEED Medication Reconciliation Report [facility] VisitID: [id number] [address] [place] [address] 61y, M Registration Date/Time: 03/30/2017 Weight: 145.1 kg Height/Length: 74 in. BMI: 41.1 ALLERGIES: Latex, LIsinopril The patient's Home Medications are listed below: CONTINUE TAKING THE FOLLOWING MEDICATIONS: Albuterol Sulfate Inhalation Aspirin Oral (81 mg) 1 tablet, daily Metoprolol Tartrate Oral (50 mg) 1 tablet, two times daily Nitroglycerin SL OxyCODONE HCl Oral 10 mg Percocet Oral (7.5-325 mg) 1 tablet, 4x a day The source(s) of the original Home Medication information: Not obtained. The following Medications were given to the patient in the Emergency Department: Diltiazem [IVP] IVP 10 mg, administered: 03/30/2017 4:24:00 PM Lasix [IVP] IVP 40 mg, administered: 03/30/2017 4:25:00 PM The following Medications were prescribed to the patient: K-Dur 10 mEq: take 1 orally every 24 hours. Dispense fifteen (15). No refills. Substitution is permissible. -- Brayden Smith MD Lasix 20 mg: Take 1 orally every 24 hours. Dispense fifteen (15). No refills. Substitution is permissible. -- Brayden Smith MD
== END 2017-03-30 17:52 | disposition home or self-care (01) ==
LOC: ED SRH 14:14
DX: I11.0 Hypertensive heart disease with heart failure (principal); I50.9 Heart failure, unspecified; J44.9 Chronic obstructive pulmonary disease, unspecified; I25.10 Atherosclerotic heart disease of native coronary artery without angina pectoris; F17.210 Nicotine dependence, cigarettes, uncomplicated; Z79.82 Long term (current) use of aspirin; Z79.899 Other long term (current) drug therapy; Z91.040 Latex allergy status
CPT/HCPCS: 90004; 90100; 90616; 91320; 91556; 92235; 92530; 92610; 95059